=== PATIENT | female | born 1985 | race Caucasian/White ===

== ENCOUNTER 2023-12-16 15:37 | Emergency (ER) | payer OTHER, SELFPAY ==
--- NOTE | ~2023-12-16 | XR_ITS ---
XR shoulder LT min 2V 12/16/2023 16:01 INDICATION: Left shoulder pain with limited range of motion PROCEDURE: 4 views left shoulder COMPARISON: No prior studies for comparison. FINDINGS: Fracture, dislocation or subluxation is not identified. The soft tissues appear within norm al limits. No foreign bodies are identified. IMPRESSION: 1: NO ACUTE BONE OR JOINT ABNORMALITY IDENTIFIED. Reviewed, dictated and finalized at location A.
--- NOTE | 2023-12-16 15:38 | ED.UPPEXIN ---
HPI - Extremity Injury (Upper) General Chief Complaint: Extremity Injury, Upper Stated Complaint: Left Arm Pain Time Seen by Provider: 12/16/23 15:46 Source: patient, RN notes reviewed and old records reviewed Mode of arrival: ambulatory Limitations: no limitations History of Present Illness HPI narrative: 38-year-old female presents to the [facility] with complaints of left shoulder pain for 2 weeks. pain is reproducible with palpation. No recent trauma. Patient reports that she had injured her entire left side 3 years ago during an accident. Has decreased range of motion. No erythema, ecchymosis noted. No swelling noted. Tender to anterior and lateral aspects Related Data Home Medications Medication Instructions Recorded Confirmed dulaglutide 4.5 mg/0.5 mL mg subcut 12/16/23 subcutaneous pen injector ([facility]) omeprazole 40 mg capsule,delayed mg 12/16/23 release phentermine 37.5 mg tablet mg 12/16/23 Allergies Allergy/AdvReac Type Severity Reaction Status Date / Time hydromorphone Allergy Unknown Verified 09/09/16 11:57 iodine Allergy Unknown Verified 09/09/16 11:57 SEAFOOD Allergy Unknown Uncoded 09/09/16 11:57 Review of Systems Review of Systems: All systems reviewed & are unremarkable except as noted in HPI and below Constitutional: Constitutional: Reports no additional constitutional complaints Eyes: Eyes: Reports no additional eye complaints ENT: Reports system reviewed and no additional complaints, except as documented Cardiovascular: Cardiovascular: Reports no additional cardiovascular complaints, Denies chest pain and Denies dyspnea Respiratory: Respiratory: Reports no additional respiratory complaints, Denies chest congestion, Denies cough and Denies dyspnea Gastrointestinal: Gastrointestinal: Reports no additional gastrointestinal complaints, Denies abdominal pain, Denies nausea and Denies vomiting Musculoskeletal: Musculoskeletal: Reports as per HPI, Reports arthralgias, Denies joint swelling and Reports limited range of motion (Unable to raise above 90?) Integumentary/Breasts: Skin/Breast: Reports system reviewed and no additional complaints, except as docu Neurologic: Reports system reviewed and no additional complaints, except as documented Psychiatric: Psychiatric: Reports no additional psychiatric complaints Allergic/Immunologic: Allergic/Immunologic: Reports no additional allergic/immunologic complaints PMFSH Past Medical History Medical History (Updated 12/19/23 @ 10:11 by Leila Garza APRN) H/O gastroesophageal reflux (GERD) Comments At the time of my signature, I reviewed and agree with the nursing past medical, surgical, social, and family history. There is no relevant family history pertinent to the patient complaint. Exam Const: General: cooperative, healthy appearing, comfortable, no acute distress, well developed, alert and well nourished Nutritional Appearance: well nourished Orientation/consciousness: patient oriented x3 Limitations: no limitations HENMT: Head: normal to inspection Ears: hearing grossly normal bilaterally and external ears normal Face/Nose/Sinus: Normal external nose present, Normal nares present, Normal nasal mucous membranes and turbinates present, normal facial exam and face symmetric Face and sinus: normal facial exam and face symmetric Eyes: General: appearance normal, both eyes and all related structures Alignment and Position: alignment normal Periorbital: periorbital findings normal Pupils: Equal, round and reactive pupils present EOM: EOMs intact bilaterally Neck: Neck: normal visual inspection, full ROM, no lymphadenopathy and no meningeal signs Chest: Chest palpation & inspection: normal inspection of the chest Resp: Effort & Inspection: normal respiratory effort and able to speak in complete sentences Auscultation: clear to auscultation bilaterally, no crackles, no rales, no rhonchi and no wheezes Cardio: Rate: r
[2023-12-16 15:47] VITALS: BP 140/96; PULSE 83; RESP 18; TEMP 36.7; O2SAT 100
== END 2023-12-16 16:21 | disposition home or self-care (01) ==
PROVIDERS: Emergency Provider Nurse Practitioner; PCP Physician Assistant
DX: M25.512 Pain in left shoulder (principal); K21.9 Gastro-esophageal reflux disease without esophagitis
CPT/HCPCS: 73030; 99203; G0463

== ENCOUNTER 2025-06-28 15:26 | Emergency (ER) | payer OTHER, SELFPAY ==
--- NOTE | ~2025-06-28 | XR_ITS ---
EXAMINATION: XR chest 2V, 06/28/2025 15:53 CDT HISTORY: pain to R side chest with deep breath COMPARISON: No comparisons available. Technique: 2 views obtained. Findings: The lungs are clear, no effusion. No pneumothorax. Heart is normal size. Mediastinal and hilar contours are within normal limits. Bony thorax no acute abnormality. Impression: No acute cardiopulmonary abnormality. Reviewed, dictated and finalized at location P. Impression: No acute cardiopulmonary abnormality.
[2025-06-28 15:28] VITALS: BP 147/91; PULSE 106; RESP 20; TEMP 36.8; O2SAT 98
--- OUTSIDE RECORDS SUMMARY | 2025-06-28 15:28 | XMS_ITS | Clinical Summary ---
Author Organization [facility] Address [address] [place] [address] Care Team Providers Care Tire Adjuster Name Role Phone Unavailable Primary Care Provider Unavailabl e Source Comments [facility],non-owned Affiliates and Associated Physician Practices is amultiple site organization consisting of ambulatory clinics and hospital sitesin [place], [place], [place] and [place]. This disclosure is being madepursuant to the Care Everywhere program and may not contain all information available regarding this patient. Last updated 18.[facility] Allergies Active Allergy Reactions Criticality Noted Date Comments Hydromorphone Vision Changes High 05/23/2014 Povidone Iodine Swelling 05/23/2014 Medications * Be aware that medications may not be up to date on this document. Alwaysverify current medications with the patient. Insulin Pen Needle (PEN NEEDLES 11/18) 31G X 5 MM MISC Use 1 Units at bedtime. Use with levemir 100 Each 3 05/23/2014 Active insulin syringe-needle (BD ULTRAFINE II) 31G X 5/16 1 ML syringe For insulin administrati on. 100 Syringe 1 05/30/2014 Active glyBURIDE (DIABETA; MICRONASE) 1.25 MG tablet Take one tablet at bedtime with snack. 30 Tab 1 07/16/2014 Active Active Problems Problem Noted Date Diagnosed Date Supervision of other high-risk 014 Overview (07/13/2015): Dating by L = 9 wk US per ACOG PNL A+/I/-/-, HIV NR per ACOG 11.8/35.4/192 Abnormal GTT GDM (gestational diabetes mellitus) 05/16/2014 Overview (05/16/2014): Possible T2DM? GTT 94/233/216/76, no A1C in records H/O shoulder dystocia in keegan or , currently 05/16/2014 Overview (05/16/2014): Shoulder dystocia x 2 Hyperthyroidism 05/16/2014 Overview (05/28/2014): On PTU 100 mg Labs from 04/15/14 - TSH 0.376 (Low) and FT4 0.98 (wnl) Melanoma 05/16/2014 Overview (05/16/2014): Of Left Breast Family History Medical History Relation Name Comments Diabetes Father Diabetes Mother Hypertension Mother Relation Name Status Comments Father Mother Social History Tobacco Use Types Packs/Day Years Used Date Smoking Tobacco: Never Smokeless Tobacco: Never Alcohol Use Standard Drinks/Week Comments No 0 (1 standard drink = 0.6 oz pur e alcohol) Comments No Sex and Gender Information Value Date Recorded Sex Assigned at Not on file Legal Sex Female 11:53 AM CDT Gender Identity Not on file Sexual Orientation Not on file Last Filed Vital Signs Vital Sign Reading Time Taken Comments Blood Pressure 132/67 07/23/2014 8:51 AM HEAT TREATER HELPER Pulse 57 07/23/2014 8:51 AM HEAT TREATER HELPER Temperature - - Respiratory Rate 20 06/25/2014 9:35 AM CDT Oxygen Saturation - - Inhaled Oxygen Concentration - - Weight 83.8 kg (184 lb 12.8 oz) 07/23/2014 8:51 AM HEAT TREATER HELPER Height 157.5 cm (5' 2) 06/25/2014 9:35 AM CDT Body Mass Index 33.8 06/25/2014 9:35 AM CDT Plan of Treatment Health Maintenance Due Date Last Done Comments LIPID TESTING 1983 MAMMOGRAM 1983 HIV SCREENING 1998 HEPATITIS C SCREENING 03/12/2001 DTAP/TDAP/TD VACCINES (1 - Tdap) 2002 HEPATITIS B VACCINE (1 of 3 - 19+ 3-dose series) 2002 HPV VACCINE (1 - 3-dose SCDM series) 2010 DEPRESSION SCREENING 09/05/2024 COVID-19 VACCINE ( - 2023-2 5 season) 2025 INFLUENZA VACCINE (#1) 2025 ZOSTER VACCINE (1 of 2) 2033 HIB VACCINE Aged Out No longer eligi ble based on patient's age to complete this topic MENINGOCOCCAL (Group B) VACC INE SHARED DECISION-MAKING Aged Out No longer eligibl e based on patient's age to complete this topic MENINGOCOCCAL GROUPS A/C/Y/W VACCINE Aged Out No longer eligible b ased on patient's age to complete this topic PNEUMOCOCCAL VACCINE Aged Out No long er eligible based on patient's age to complete this topic Insurance [address] [address] MEDICAID - [place] MEDICAID - [employer]
--- OUTSIDE RECORDS SUMMARY | 2025-06-28 15:28 | XMS_ITS | Encounter Summary ---
Author Organization [facility] Address [address] [place] [address] Phone Care Team Providers Care Motor Vehicle Technician Name Role Phone John Kaiser DO Unavailable [phone] Dawn Bower GEOSPATIAL SPECIALIST, LOW PRESSURE KETTLE OPERATOR Unavailable [phone] Gloria Garvey GEOSPATIAL SPECIALIST, LOW PRESSURE KETTLE OPERATOR Unavailable Yan Gutierrez MD Unavailable Naima Carver MD Unavailable [phone] Marce Armenta PAC Primary Care Provider + Dirk Viramontes PAC Unavailable [phone] Reason for Visit * Reason Comments Medication Refill Encounter Details Date Type Department Care Team (Late st Contact Info) Description 01/19/2024 Refill [facility] - Family Medicine [facility] [address] [place] [address] Marce Armenta, PAC [address] [place] [address] Medication Refill Social History Tobacco Use Types Packs/Day Years Used Date Smoking Tobacco: Former Cigarettes 0 05/12/1996 - 03/04/2006 Smokeless Tobacco: Never Alcohol Use Standard Drinks/Week Comments Not Currently 0 (1 standard drink = 0.6 oz pur e alcohol) once or twice a year [facility] Utilities Answer Date Recorded In the past 12 months has th e electric, gas, oil, or water company threatened to shut off services in your home? No 11/03/2023 Social Connection and Isolation Panel Answer Date Recorded In a typical week, how many times do you talk on the phone with family, friends, or neighbors? More than three times a week 11/03/2023 How often do you get togethe r with friends or relatives? More than three times a week 11/03/2023 How often do you attend chur ch or orthodox services? Never 11/03/2023 Do you belong to any clubs o r organizations such as rastafari groups, unions, fraternal or athletic groups, or school groups? No 11/03/2023 How often do you attend meet ings of the clubs or organizations you belong to? Never 11/03/2023 Are you , , di vorced, , never , or living with a partner? Living with partner 11/03/2023 AUDIT-C Answer Date Recorded Q1: How often do you have a drink containing alc ohol? Never 11/03/2023 Average Number of Drinks Not on file 024 Frequency of Binge Drinking Not on file 10/07 Overall Financial Resource Strain (CARDIA) Answe r Date Recorded How hard is it for you to pa y for the very basics like food, housing, medical care, and heating? Not hard at all 11/03/2023 PHQ-2 Answer Date Recorded Total Score - Questions 1-9 1 10/07 [facility] - Occupational Stress Questionnaire Answer Date Recorded Do you feel stress - tense, restless, nervous, or anxious, or unable to sleep at night because your mind is troubled all the time - these days? Not at all 11/03/2023 Exercise Vital Sign Answer Date Recorde d On average, how many days pe r week do you engage in moderate to strenuous exercise (like a brisk walk)? 5 days 11/03/2023 On average, how many minutes do you engage in exercise at this level? 90 min 11/03/2023 Hunger Vital Sign Answer Date Recorded Within the past 12 months, y ou worried that your food would run out before you got the money to buy more. Never true 11/03/19 Within the past 12 months, t he food you bought just didn't last and you didn't have money to get more. Never true 11/03/2023 PRAPARE - Transportation Answer Date Re corded In the past 12 months, has l ack of transportation kept you from medical appointments or from getting medications? No 10/07 In the past 12 months, has l ack of transportation kept you from meetings, work, or from getting things needed for daily living? No 11/03/2023 Housing Stability Vital Sign Answer Jostin e Recorded In the last 12 months, was t here a time when you were not able to pay the mortgage or rent on time? No 11/03/2023 [address] of [address] Lived in the Last Year Not on f ile 11/03/2023 Unstable Housing in the Last Year Not on file 11/03/2023 Education Answer Date Recorded What is the highest level of school you have completed or the highest degree you have received? 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 Not on file Not on file Not on file documented as of this encounter Miscellaneous Notes * Telephone Encounter - Ginger Rodrigues RN - 01/19/2024 8:35 AM CDT On 01/06/24, sent to: Pharmacy [facility] [address] [place] [address] documented in this encounter Plan of Treatment Not on file documented as of this encounter Visit Diagnoses Diagnosis Type 2 diabetes mellitus without complication, without long-term current use of insulin documented in this encounter Additional Health Concerns Assessment Noted Time PHQ-9 Depression Total Score: 1 11/03/19 9:00 AM WOUND CARE CENTER CONSULTANT documented as of this encounter Care Teams Motor Vehicle Technician Relationship Specialty Start Date End Date Marce Armenta PAC [address] [place] [address] PCP - General Physician Mill Operator 04/22/20 John Kaiser DO Gastroenterology 03/15/16 Dawn Bower, GEOSPATIAL SPECIALIST, LOW PRESSURE KETTLE OPERATOR Nurse Practitioner Advanced Practice Nurse 03/15/16 Golria Garvey, GEOSPATIAL SPECIALIST, LOW PRESSURE KETTLE OPERATOR Nurse Practitioner Advanced Practice Nurse 03/15/16 Yan Gutierrez MD General Surgery 02/22/17 aNima Carver MD [address] [place] [address] Family Medicine 10/03/19 Dirk Viramontes PAC [address] [place] [address] Physician Mill Operator Physician Mill Operator 02/10/24 documented as of this encounter
--- OUTSIDE RECORDS SUMMARY | 2025-06-28 15:28 | XMS_ITS | Encounter Summary ---
Author Organization [facility] Address [address] [place] [address] Phone Care Team Providers Care Qa Automation Engineer Name Role Phone John Kaiser DO Unavailable [phone] Dawn Bower ARMAMENT INSTALLER, PETROLOGIST Unavailable Gloria Garvey ARMAMENT INSTALLER, PETROLOGIST Unavailable Yan Gutierrez MD Unavailable [phone] Naima Carver MD Unavailable [phone] Marce Armenta PAC Primary Care Provider + Dirk Viramontes PAC Unavailable [phone] Reason for Visit * Reason Comments Medication Refill Encounter Details Date Type Department Care Team (Late st Contact Info) Description 02/23/2021 Refill [facility] - Family Medicine [facility] [address] [place] [address] Marce Armenta, PAC [address] [place] [address] Medication Refill Social History Tobacco Use Types Packs/Day Years Used Date Smoking Tobacco: Former Cigarettes 0 05/12/1996 - 03/04/2006 Smokeless Tobacco: Never Alcohol Use Standard Drinks/Week Comments Yes 0 (1 standard drink = 0.6 oz pur e alcohol) once or twice a year PHQ-2 Answer Date Recorded Total Score - Questions 1-9 0 09/06 Education Answer Date Recorded What is the highest level of school you have completed or the highest degree you have received? 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 No / Unsure 02/06/2021 7:47 AM CDT documented as of this encounter Miscellaneous Notes * Telephone Encounter - Lola Hoang RN - 02/23/2021 4:23 PM CDT Per nursing clinical judgement, provider to review and approve the medication(s) order(s) if appropriate. Last OV 02/06/21, F/U None, Last Rx 04/22/20, Address Duplicate Therapy Lola RN Requested Prescriptions Pending Prescriptions Disp Refills albuterol (PROVENTIL, VENTOLIN) (2.5 MG/3ML) 0.083% Nebulizer Soln [Pharmacy Med Name: albuterol sulfate 2.5 mg/3 mL (0.083 %) solution for nebulization] 120 Vial 11 Sig: USE 1 VIAL IN NEBULIZER 4 TIMES DAILY Short Acting Inhaled Beta-Agonists Protocol Passed - 02/23/2021 10:34 AM Passed - Visit with relevant provider in past 12 months or upcoming 90 days Recent Visits Date Type Provider Dept 02/06/21 Office Visit Marce Armenta, PAC [facility] 09/29/20 Office Visit Marce Armenta, PAC [facility] 09/03/20 Telemedicine Marce Armenta, PAC [facility] 08/21/20 Telemedicine Marce Armenta, PAC [facility] 07/18/20 Office Visit Marce Armenta, PAC [facility] 07/02/20 Office Visit Marce Armenta, PAC [facility] 06/24/20 Office Visit Marce Armenta, PAC [facility] 05/16/20 Office Visit Marce Armenta, PAC [facility] 04/22/20 Office Visit Marce Armenta, PAC [facility] Showing recent visits within past 365 days and meeting all other requirements Future Appointments No visits were found meeting these conditions. Showing future appointments within next 90 days and meeting all other requirements documented in this encounter Plan of Treatment Not on file documented as of this encounter Visit Diagnoses Not on filedocumented in this encounter Additional Health Concerns Assessment Noted Time PHQ-9 Depression Total Score: 0 09/29/19 8:00 AM ELECTRICIAN YARD documented as of this encounter Care Teams Qa Automation Engineer Relationship Specialty Start Date End Date Marce ArmentaDEMOND [address] [place] [address] PCP - General Physician Recruiter Specialist 04/22/20 John Kaiser DO Gastroenterology 03/15/16 Dawn Bower APRN, PETROLOGIST Nurse Practitioner Advanced Practice Nurse 03/15/16 Gloria Garvey, ARMAMENT INSTALLER, PETROLOGIST Nurse Practitioner Advanced Practice Nurse 03/15/16 Yan Gutierrez MD General Surgery 02/22/17 Naima Carver MD [address] [place] [address] [place] [address] Family Medicine 10/03/19 Dirk Viramontes, PAC [address] [place] [address] Physician Recruiter Specialist Physician Recruiter Specialist 02/10/24 documented as of this encounter
--- OUTSIDE RECORDS SUMMARY | 2025-06-28 15:28 | XMS_ITS | Clinical Summary ---
Author Organization [facility] Address [address] [address] Phone Care Team Providers Care Contour Path Tape Mill Operator Name Role Phone John Kaiser DO Unavailable [phone] Dawn Bower ADDRESS CHANGE CLERK, SUPERVISOR HOT DIP PLATING Unavailable [phone] Gloria Garvey ADDRESS CHANGE CLERK, SUPERVISOR HOT DIP PLATING Unavailable Yan Gutierrez MD Unavailable Naima Carver MD Unavailable Marce Armenta PAC Primary Care Provider + Dirk Viramontes PAC Unavailable [phone] Allergies Active Allergy Reactions Criticality Noted Date Comments Hydromorphone Hcl Other (see Comments) 03/04/20 16 DIZZY/BLACK OUT Iodine Hives Medium 02/06/2021 Povidone-Iodine Swelling Medium 05/23/2014 Prochlorperazine Rash Medium 01/08/2021 Reaction: RASH Medications ferrous sulfate 325 (65 Fe) MG Tablet Take 1 Tablet by mouth daily. 90 Tablet 12/24/19 22 Active Blood Glucose Monitoring Suppl DeviceIndicatio ns:Type 2 diabetes mellitus without complication, without long-term current use of insulin Diagnosis: Diabetes type 2 Blood testing frequency: once a day 1 Each 09/14/19 23 Active Lancets MiscIndications :Type 2 diabetes mellitus without complication, without long-term current use of insulin Use as directed 100 Lancet 3 09/14/19 Active Glucose Blood (Glucose Meter Test) StripIndication s:Type 2 diabetes mellitus without complication, without long-term current use of insulin Test once daily 90 Strip 3 09/14/19 23 Active Cholecalciferol 25 mcg Capsule Take 1,000 Units by mouth. Active Blood Pressure Monitor DeviceIndicatio ns:Hypertension , unspecified type 1 Device by Does not apply route daily. 1 Each 06/30/20 23 Active cetirizine (ZyrTEC) 10 MG Tablet Take 1 Tablet by mouth daily. 90 Tablet 12/19/19 24 Active ondansetron (Zofran) 4 MG Tablet Take 1 Tablet by mouth every 8 hours as needed for Nausea - 1st line. 15 Tablet 03/29/20 24 Active hyoscyamine (ANASPAZ, LEVSIN) 0.125 MG Tablet Take 1 Tablet by mouth every 6 hours as needed for Cramping or Diarrhea. 60 Tablet 2 05/10/20 24 Active fluticasone (Flonase) 50 MCG/ACT SuspensionIndic ations:Allergic rhinitis due to other allergic trigger, unspecified seasonality 2 Sprays by Nasal route daily. 18.2 mL 3 12/11/19 25 Active albuterol (PROVENTIL, VENTOLIN) (2.5 MG/3ML) 0.083% Nebulizer Soln USE 1 VIAL IN NEBULIZER EVERY 4 TO 6 HOURS NEEDED for wheezing, cough or shortness of breath 300 mL 12/11/19 25 Active albuterol 108 (90 Base) MCG/ACT Aerosol SolutionIndicat ions:Moderate persistent asthma, unspecified whether complicated INHALE 2 PUFFS BY MOUTH EVERY 4 TO 6 HOURS NEEDED FOR WHEEZING AND FOR COUGH 18 g 1 12/11/19 25 Active Respiratory Therapy Supplies (Nebulizer/Tubi ng/Mouthpiece) KitIndications: Moderate persistent asthma, unspecified whether complicated 1 Device by Does not apply route every 4 hours as needed (cough, wheezing or shortness of breath). 1 Each 12/11/19 25 Active losartan (COZAAR) 25 MG TabletIndicatio ns:Hypertension , unspecified type Take 1 Tablet by mouth daily. 90 Tablet 3 12/11/19 25 Active Trulicity 4.5 MG/0.5ML Solution Auto-injector INJECT 1 SYRINGE SUBCUTANEOUSLY ONCE A WEEK 2 mL 5 02/15/20 25 Active fluticasone-marilu meterol (ADVAIR) 500-50 MCG/ACT AEROSOL POWDER, BREATH ACTIVATEDIndica tions:Moderate persistent asthma, unspecified whether complicated take 1 Puff by inhalation 2 times daily. 60 Each 2 02/19/20 25 Active Phentermine HCl 37.5 MG TabletIndicatio ns:BMI 33.0-33.9,adult Take 1 Tablet by mouth every morning (before breakfast). 30 Tablet 02/19/20 25 Active tiZANidine (ZANAFLEX) 2 MG TabletIndicatio ns:Left shoulder pain, unspecified chronicity Take 1 Tablet by mouth 3 times daily as needed for Muscle spasms. 60 Tablet 03/20/20 25 Active scopolamine (TRANSDERM-SCOP ) 1 MG/3DAYS PATCH 72 HR 1 Patch by Transdermal route every 72 hours. 1.5 mg patch delivers 1 mg over 3 days 3 Patch 05/01/20 25 Active ergocalciferol (VITAMIN D) 41560 UNIT Capsule Take 1 capsule by mouth once a week 12 Capsule 05/13/20 25 Active omeprazole (PriLOSEC) 40 MG CAPSULE DELAYED RELEASE Take 1 capsule by mouth once daily 90 Capsule 1 05/29/20 25 Active Hospital, Clinic, or Other Facility Administered Medication Ordered Dose Route Frequency Start Date End Date Status cyanocobalamin (VITAMIN B-12) injection 1,000 mcgIndications:B12 deficiency 1000 mcg IM EVERY 30 DAYS 08/24/2022 Active Active Problems Problem Noted Date Diagnosed Date Type 2 diabetes mellitus wit hout complication, without long-term current use of insulin 08/30/2024 Vitamin D deficiency 08/30/2024 B12 deficiency 08/30/2024 Encounters Date Type Department Care Team Description 05/27[facility]20[facility] [place] [address] Marce Armenta PAC Medication Refill 05/11/2025 [facility] [place] [address] Marce Armenta PAC Medication Refill 04/24/2025 Telephone [facility] at [facility] [address], [address] [place] [id number] Yvan Ochoa, NUT ROASTER HELPER No Show 04/15/2025 Telephone [facility] at [facility] [address] [place] [id number] Ritika Rivera, PT Missed visit 03/29/2025 9:15 AM CDT Physical Therapy [facility] at [facility] [address], [address] [place] [phone] Zayra Lloyd, ADDRESS CHANGE CLERK, SUPERVISOR HOT DIP PLATING Yvan Ochoa, NUT ROASTER HELPER Left shoulder pain, unspecified chronicity (Primary Dx) Discharge Disposition: Discharged to home or Selfcare 03/28/2025 Travel from Last 3 Months Immunizations Immunization Administration Dates Next Due TDAP Vaccine 03/29/2023 Td (Adult) 09/05/2007 VFC Td W/PRES 7+ YRS 09/05/2007 Family History Medical History Relation Name Comments Diabetes Father Tulio Neuropathy Father Tulio Diabetes Mother Jordyn Hypertension Mother Jordyn Relation Name Status Comments Father Tulio Mother Jordyn Alive Social History Tobacco Use Types Packs/Day Years Used Date Smoking Tobacco: Former Cigarettes 0 05/12/1996 - 03/04/2006 Smokeless Tobacco: Never Tobacco Cessation:Counseling Given: Not Answered Alcohol Use Standard Drinks/Week Comments Not Currently 0 (1 standard drink = 0.6 oz pur e alcohol) once or twice a year [facility] Utilities Answer Date Recorded In the past 12 months has [employer], oil, or water [employer] threatened to shut off services in your home? Patient declined 12/10/2024 Social Connection and Isolation Panel Answer Date Recorded In a typical week, how many times do you talk on the phone with family, friends, or neighbors? Patient declined 12/11/19 How often do you get togethe r with friends or relatives? Patient declined 12/10/2024 How often do you attend [facility] or mormon services? Patient declined 12/10/2024 Do you belong to any clubs o r organizations such as hindu groups, unions, fraternal or athletic groups, or school groups? No 12/10/2024 How often do you attend meet ings of the clubs or organizations you belong to? Patient declined 12/10/2024 Are you , , di vorced, , never , or living with a partner? Living with partner 12/10/2024 AUDIT-C Answer Date Recorded Q1: How often do you have a drink containing alcohol? Never 12/10/2024 Q2: How many drinks containi ng alcohol do you have on a typical day when you are drinking? Patient does not drink Q3: How often do you have si x or more drinks on one occasion? Never 12/10/2024 Overall Financial Resource Strain (CARDIA) Answe r Date Recorded How hard is it for you to pa y for the very basics like food, housing, medical care, and heating? Not hard at all 12/10/2024 PHQ-2 Answer Date Recorded Total Score - Questions 1-9 0 03/2025 [facility] - Occupational Stress Questionnaire Answer Date Recorded Do you feel stress - tense, restless, nervous, or anxious, or unable to sleep at night because your mind is troubled all the time - these days? Patient declined 12/10/2024 Exercise Vital Sign Answer Date Recorde d On average, how many days pe r week do you engage in moderate to strenuous exercise (like a brisk walk)? 5 days On average, how many minutes do you engage in exercise at this level? Patient declined 12/10/2024 Hunger Vital Sign Answer Date Recorded Within the past 12 months, y ou worried that your food would run out before you got the money to buy more. Patient declined Within the past 12 months, t he food you bought just didn't last and you didn't have money to get more. Patient declined 03/2025 PRAPARE - Transportation Answer Date Re corded In the past 12 months, has l ack of transportation kept you from medical appointments or from getting medications? Patient declined 12/10/2024 In the past 12 months, has l ack of transportation kept you from meetings, work, or from getting things needed for daily living? Patient declined 12/10/2024 Housing Stability Vital Sign Answer Jostin e Recorded In the last 12 months, was t here a time when you were not able to pay the mortgage or rent on time? No 01/24/2024 Number of Places Lived in the Last Year Not on f ile 01/24/2024 In the last 12 months, was t here a time when you did not have a steady place to sleep or slept in a long-term (including now)? No 01/24/2024 Housing Stability Vital Sign Answer Jostin e Recorded In the last 12 months, was t here a time when you were not able to pay the mortgage or rent on time? Patient declined 12/11/19 25 Number of Times Moved in the Last Year Not on fi le 12/10/2024 At any time in the [facility], were you homeless or living in a long-term (including now)? 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 Not on file Not on file Not on file Last Filed Vital Signs Vital Sign Reading Time Taken Comments Blood Pressure 124/80 03/20/2025 10:27 AM CDT Pulse 75 03/20/2025 10:27 AM CDT Temperature 36.4 C (97.6 F) 03/20/2025 10:27 AM CDT Respiratory Rate 18 03/20/2025 10:27 AM CDT Oxygen Saturation 100% 03/20/2025 10:27 AM CDT Inhaled Oxygen Concentration - - Weight 84.8 kg (187 lb) 03/20/2025 10:27 AM CDT Height 157.5 cm (5' 2) 03/20/2025 10:27 AM CDT Body Mass Index 34.2 03/20/2025 10:27 AM CDT Plan of Treatment Health Maintenance Due Date Last Done Comments Diabetes: Foot Exam 1983 Hepatitis B Immunization (1 of 3 - 19+ 3-dose series) 2002 Pneumococcal Immunization Combined (1 of 2 - PCV) 2002 Human Papillomavirus (HPV) Immunization (1 - 3-dose SCDM series) 2010 Diabetes: Eye Exam 08/18/2016 08/18/2015 Influenza Immunization (#1) 2025 SARS-COV-2 Immunization ( - season) 2025 Diabetes: Hemoglobin A1c 08/22/2025 025, 08/27/2024, 06/30/2023, Additional history exists Diabetes: Nephropathy Screening 02/20/2026 02/20/2025, 02/20/2025, 08/27/2024, Additional history exists Mammogram 03/25/2026 03/25/2025, 01/04, 06/12/2020 Td Immunization Every 10 Years (Adults With 1 Tdap) 03/29/2033 03/29/2023, 09/05/2007, 09/05/2007 Respiratory Syncytial Virus (RSV) Immunization (Adult) (1 - 1-dose 75+ series) 2058 DTaP/Tdap/Td Immunization Discontinued 2022, 09/05/2007, 09/05/2007 Discussion re Starting/Frequency of Mammograms Completed 03/25/2025, 01/31/2024, 06/12/2020 Hepatitis C Virus (HCV) Screening Discontinued Meningococcal Immunization (ACWY) Aged Out No longer eligible based on patient's age to complete this topic Rotavirus Immunization Aged Out No lo nger eligible based on patient's age to complete this topic Procedures Procedure Name Priority Date/Time Associated Diagnosis Comments OTTONIEL SCREENING BILATERAL DIGITAL W CAD W MARIAMA Routine 03/25/2025 4:08 PM CDT Screening mammogram for breast cancer UR MICROALBUMIN/CREATIN INE RATIO RANDOM Routine 02/20/2025 9:40 AM CDT Type 2 diabetes mellitus without complication, without long-term current use of insulin HEMOGLOBIN A1C W/ ESTIMATED GLUCOSE Routine 02/20/2025 9:40 AM CDT Type 2 diabetes mellitus without complication, without long-term current use of insulin HM DILATED EYE EXAM Routine 08/18/2015 from Last 3 Months or Most Recently Relevant to Health Maintenance Results * OTTONIEL SCREENING BILATERAL DIGITAL W CAD W MARIAMA (03/25/2025 4:08 PM CDT) Anatomical Region Laterality Modality breast Bilateral Mammography 03/25/2025 3:32 PM CDT Narrative 03/28/2025 8:19 AM CDT - OTTONIEL SCREENING BILATERAL DIGITAL W CAD W MARIAMA BILATERAL DIGITAL SCREENING MAMMOGRAM 3D/2D WITH CAD WITH EXAGGERATED CC MEDIOLATERAL OBLIQUE CRANIOCAUDAL: 03/25/2025 The study was acquired using digital technology and interpreted from soft copy. Current study was also evaluated with ICAD version 7.2. 2D digital mammographic views, as well as 3D digital tomosynthesis were performed in the CC and MLO projections. CLINICAL: Routine screening. Patient has no complaints. Personal history of melanoma left breast. No family history of breast cancer. COMPARISONS: Comparison is made to exams dated: 05/31/2011 [facility], 06/12/2020 [facility], and 01/31/2024 [facility]. BREAST TISSUE:The breasts are heterogeneously dense, which may obscure small masses. FINDINGS: No significant masses, calcifications, or other findings are seen in either breast. There has been no significant interval change. IMPRESSION: NEGATIVE There is no mammographic evidence of malignancy. A 1 year screening mammogram is recommended. A letter will be sent to the patient with these results. The patient will be entered into a reminder system with a target due date of 1 year for her next screening exam. Electronically signed by: Miquel adan/asiya:03/26/2025 22:26:13 Pottery Kiln Builder(s): RT Ari(R)(M), [facility] letter sent: Normal Exam Reading location: [facility] Mammogram BI-RADS: Category 1: Negative Procedure Note Miquel Carlos MD - 03/28/2025 - OTTONIEL SCREENING BILATERAL DIGITAL W CAD W MARIAMA BILATERAL DIGITAL SCREENING MAMMOGRAM 3D/2D WITH CAD WITH EXAGGERATED CC MEDIOLATERAL OBLIQUE CRANIOCAUDAL: 03/25/2025 The study was acquired using digital technology and interpreted from soft copy. Current study was also evaluated with ICAD version 7.2. 2D digital mammographic views, as well as 3D digital tomosynthesis were performed in the CC and MLO projections. CLINICAL: Routine screening. Patient has no complaints. Personal history of melanoma left breast. No family history of breast cancer. COMPARISONS: Comparison is made to exams dated: 05/31/2011 [facility], 06/12/2020 [facility], and 01/31/2024 [facility]. BREAST TISSUE:The breasts are heterogeneously dense, which may obscure small masses. FINDINGS: No significant masses, calcifications, or other findings are seen in either breast. There has been no significant interval change. IMPRESSION: NEGATIVE There is no mammographic evidence of malignancy. A 1 year screening mammogram is recommended. A letter will be sent to the patient with these results. The patient will be entered into a reminder system with a target due date of 1 year for her next screening exam. Electronically signed by: Miquel adan/asiya:03/26/2025 22:26:13 Pottery Kiln Builder(s): RT Ari(R)(M), [facility] letter sent: Normal Exam Reading location: [facility] Mammogram BI-RADS: Category 1: Negative us Marce Armenta PAC IMG MAMMO ORDERABLES Fin al Result * HEMOGLOBIN A1C W/ ESTIMATED GLUCOSE (02/20/2025 9:40 AM CDT) HGB-A1C 5.7 4.0 - 6.0 % 02/20/2025 11:02 AM CDT [facility] Est Average Glucose 116.9 mg/dL 02/20/2025 11:02 AM CDT [facility] Blood Venipuncture / Unknown 02/20/2025 9:40 AM CDT 02/20/2025 10:34 AM CDT Narrative [facility] - 02/20/2025 11:02 AM CDT HEMOGLOBIN A1C: DIABETIC PATIENTS: WELL-CONTROLLED: 6.2 - 7.0 INTERMEDIATE WELL-CONTROLLED: 7.0 - 9.0 POORLY-CONTROLLED: >9.0 Specimens containing greater than 5% of Hemoglobin F may result in lower than expected % HbA1C results. us Marce Armenta PAC CHEMISTRY ORDERABLES Fin al Result Performing Organization Address City/[facility]/ZIP Co de Phone Number [facility] [address] [place] [address] * UR MICROALBUMIN/CREATININE RATIO RANDOM (02/20/2025 9:40 AM CDT) RAN UR MICROALBUMIN 3.14 mg/dL 02/20/2025 10:53 AM CDT [facility] Comment:No reference range h as been established. Consider Clinical Correlation. CREATININE URINE 199.8 mg/dL 02/21/20 25 10:53 AM CDT [facility] Comment:No reference range h as been established. Consider Clinical Correlation. ALB/CREAT RATIO 16 0 - 30 mg/g CRE 02/20/2025 10:53 AM CDT [facility] Urine Non-Phlebotomy Collection / Unknown 02/20/2025 9:40 AM CDT 02/20/2025 10:32 AM CDT us Marce Armenta PAC URINE ORDERABLES Final R esult Performing Organization Address [facility] Co de Phone Number [facility] [address] [place] [address] * DILATED EYE EXAM (08/18/2015) us Not On File Provider PROCEDURE/MINOR SURGICAL OR DERABLES Final Result from Last 3 Months or Most Recently Relevant to Health Maintenance Insurance MEDICAID [employer] Care Teams Contour Path Tape Mill Operator Relationship Specialty Start Date End Date Marce Armenta PAC [address] [place] [address] PCP - General Physician Dye House Vat Worker 04/22/20 John Kaiser DO Gastroenterology 03/15/16 Dawn Bower, ADDRESS CHANGE CLERK, SUPERVISOR HOT DIP PLATING Nurse Practitioner Advanced Practice Nurse 03/15/16 Gloria Garvey, ADDRESS CHANGE CLERK, SUPERVISOR HOT DIP PLATING Nurse Practitioner Advanced Practice Nurse 03/15/16 Yan Gutierrez MD General Surgery 02/22/17 Naima Carver MD [address] [place] [address] [place] [address] Family Medicine 10/03/19 Dirk Viramontes PAC [address] [place] [address] Physician Dye House Vat Worker Physician Dye House Vat Worker 02/10/24
--- OUTSIDE RECORDS SUMMARY | 2025-06-28 15:28 | XMS_ITS | Clinical Summary ---
Author Organization [facility] Address [address] [place] [address] Care Team Providers Care Button Puncher Name Role Phone Marce Armenta Primary Care Provider [phone] Michelle Dixon DO Unavailable [phone] Allergies Active Allergy Reactions Criticality Noted Date Comments Hydromorphone Hives,Other (See comments),Vision changes,Dizziness,Nausea & Vomiting High 05/23/2014 DIZZY/BLACK OUT Medications albuterol 2.5 mg /3 mL (0.083 %) nebulizer solution albuterol sulfate 2.5 mg/3 mL (0.083 %) solution for nebulization USE 1 VIAL IN NEBULIZER EVERY 4 TO 6 HOURS NEEDED 0 Active albuterol HFA (PROVENTIL HFA,VENTOLIN HFA,PROAIR HFA) 90 mcg/actuation inhaler ProAir HFA 90 mcg/actuation aerosol inhaler INHALE 1 PUFF BY MOUTH EVERY 4 TO 6 HOURS NEEDED 1 Active cetirizine (ZyrTEC) 10 mg tablet cetirizine 10 mg tablet TAKE 1 TABLET BY MOUTH ONCE DAILY NEEDED Active fluticasone propionate (FLONASE) 50 mcg/actuation nasal spray Administer 2 sprays into each nostril daily Active phentermine (ADIPEX-P) 37.5 mg tablet Take 1 tablet (37.5 mg total) by mouth daily before breakfast 1 Active propranolol LA (INDERAL LA) 80 mg 24 hr capsule Take 1 capsule (80 mg total) by mouth daily For facial flushing 1 Active omeprazole (PriLOSEC) 40 mg capsule Take 1 capsule (40 mg total) by mouth daily 1 Active dulaglutide (TRULICITY) 4.5 mg/0.5 mL pen injector Inject 0.5 mL (4.5 mg total) under the skin once a week On Fridays 3 Active acetaminophen (TYLENOL) 325 mg tablet Take 2 tablets (650 mg total) by mouth every 6 (six) hours as needed for pain Active metoclopramide (REGLAN) 10 mg tablet Take 1 tablet (10 mg total) by mouth 3 (three) times a day for 5 days 15 tablet 4 Active Active Problems Problem Noted Date Diagnosed Date Viral gastroenteritis 03/28/2024 Hypoferremia 01/16/2024 Cyst of left ovary 12/31/2023 Rectal bleeding 12/30/2023 Abdominal pain 12/30/2023 Elevated systolic blood pres sure reading without diagnosis of hypertension 12/30/2023 Menorrhagia with irregular cycle 10/13/2021 Overview (10/13/2021): Added automatically from request for surgery [id number] Carpal tunnel syndrome, bilateral 02/19/2021 Overview (02/19/2021): Added automatically from request for surgery [id number] Trigger finger, right ring finger 02/13/2021 Trigger little finger of right hand 02/13/2021 Cubital tunnel syndrome on right 02/13/2021 Surgical follow-up care 01/08/2021 Multiple joint pain 01/08/2021 Obesity 01/08/2021 Painless rectal bleeding 01/08/2021 Primary fibromyalgia syndrome 01/08/2021 Lung nodule 12/24/2019 History of Helicobacter pylori infection 020 Persistent cough 12/24/2019 Helicobacter pylori gastrointestinal tract infec tion 09/20/2019 Flushing 01/02/2019 Gastroesophageal reflux disease without esophagi tis 01/02/2019 Spina bifida 01/02/2019 Chronic low back pain 10/18/2018 History of gestational diabetes mellitus 019 Overview (01/08/2021): Shoulder dystocia x 2 History of malignant melanoma 10/18/2018 Postcholecystectomy syndrome 10/11/2018 Lesion of lip 07/26/2014 GDM (gestational diabetes mellitus) 05/16/2014 Overview (01/08/2021): Possible T2DM? GTT 94/233/216/76, no A1C in records Hyperthyroidism 05/16/2014 Overview (01/08/2021): On PTU 100 mg Labs from 04/15/14 - TSH 0.376 (Low) and FT4 0.98 (wnl) Melanoma 05/16/2014 Overview (01/08/2021): Of Left Breast Supervision of other high ri sk pregnancies, unspecified trimester 05/16/2014 Overview (01/08/2021): Dating by L = 9 wk US per ACOG PNL A+/I/-/-, HIV NR per ACOG 11.8/35.4/192 Abnormal GTT Immunizations Immunization Administration Dates Next Due Td, Not Adsorbed 09/05/2007 Tdap 03/29/2023 Surgical History Surgery Date Site/Laterality Comments [place] CHOLECYSTECTOMY Cholecystectomy - (Added by TW Conv) ROTATOR CUFF REPAIR Rotator Cuff Repair - (Added by TW Conv) SECTION TUBAL LIGATION 07/06/2014 - 08/04/2014 TRIGGER FINGER RELEASE SKIN CANCER EXCISION breast CARPAL TUNNEL RELEASE ABLATION uterine LIPOMA RESECTION x 2 surgeries GANGLION CYST EXCISION HYSTERECTOMY Medical History Medical History Date Comments Personal history of malignan t melanoma of skin History of malignant melanom a - (Added by TW Conv) Asthma GERD (gastroesophageal reflux disease) Cancer (HCC) skin Seasonal allergies Asthma due to seasonal allergies Cough Lung disease Headache Anemia TMJ dysfunction Family History Medical History Relation Name Comments Diabetes Father Family history of diabetes mellitus - (Added by TW Conv) Diabetes Mother Family history of diabetes mellitus - (Added by TW Conv) Arthritis Other Gout Other Hypertension Other Kidney disease Other Lung disease Other Seizures Other Relation Name Status Comments Father Mother Other Social History Tobacco Use Types Packs/Day Years Used Date Smoking Tobacco: Former Cigarettes 0.5 5 1 998 - 2002 Smokeless Tobacco: Never Tobacco Cessation:Counseling Given: Not Answered Alcohol Use Standard Drinks/Week Comments Yes 0 (1 standard drink = 0.6 oz pur e alcohol) AUDIT-C Answer Date Recorded Q1: How often do you have a drink containing alcohol? Never 12/30/2023 Q2: How many drinks containi ng alcohol do you have on a typical day when you are drinking? Patient does not drink Q3: How often do you have si x or more drinks on one occasion? Never 12/30/2023 Personal Safety Answer Date Recorded Have you ever been in or are you currently in a harmful physical or emotional relationship or is someone making you feel afraid or unsafe? 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 Not on file Not on file Obstetrics History Para Term AB IAB SAB Ectopic Multiple Livin g Live Births 6 5 5 1 1 5 5 Date Outcome GA Total Labor Labor/2nd/3rd Weight Sex Type Anes PTL Anna A1 A5 Name Clin Term 2.807 kg (6 lb 3 oz) F Vag-S pont Livin g Term 4.281 kg (9 lb 7 oz) F CS-Un spec Livin g SAB 2001 Term 38w 0d 3.09 kg (6 lb 13 oz) N Mariel kennedy Complications:None 2003 Term 40w 0d 4.167 kg (9 lb 3 oz) N Mariel Jamil on Complications:Shoulder Dysto nery Comments:permanent bra chial plexus injury with physical therapy x 8 years 09/2013 Term 39w 0d 4.139 kg (9 lb 2 oz) M Vag-V acuum Saud Truong Complications:Shoulder Dysto nery Comments:abnormal 1-ho ur GCT, normal 3-hour GTT Last Filed Vital Signs Vital Sign Reading Time Taken Comments Blood Pressure 133/93 03/28/2024 11:15 AM CDT Pulse 101 03/28/2024 11:15 AM CDT Temperature 36.7 C (98.1 F) 03/28/2024 11:22 AM CDT Respiratory Rate 13 03/28/2024 11:15 AM CDT Oxygen Saturation 97% 03/28/2024 11:15 AM CDT Inhaled Oxygen Concentration - - Weight 74.4 kg (164 lb) 03/28/2024 8:26 AM CDT Height 157.5 cm (5' 2) 01/16/2024 1:43 PM CDT Body Mass Index 30 01/16/2024 1:43 PM CDT Plan of Treatment Health Maintenance Due Date Last Done Comments Albumin Creatinine Ratio, Urine 1983 Depression Screening 1983 Hemoglobin A1C 1983 Hepatitis C Screening 1983 Dilated Eye Exam 1983 Foot Exam 1983 Varicella Vaccines (1 of 2 - 13+ 2-dose series) 1996 Hepatitis B Screening 2001 Regular Well Visit/Exam 18-64 2001 Pneumococcal vaccine <65 (1 of 2 - PCV) 2002 HPV Vaccines (1 - 3-dose SCD M series) 2010 eGFR 03/28/2025 03/28/2024, 12/05, 12/30/2023, Additional history exists Influenza Vaccine (#1) 2025 Lipid Panel 02/20/2026 02/20/2025, 06/30/2023 Breast Cancer Screening-Mammogram 03/25/2026 03/25/2025, 03/25/2025, 01/31/2024, Additional history exists DTaP/Tdap/Td Vaccine (2 - Td or Tdap) 03/29/2033 03/29/2023, 09/05/2007 Procedures Procedure Name Priority Date/Time Associated Diagnosis Comments EGFR STAT 03/28/2024 8:41 AM CDT SCREENING MAMMOGRAM BILATERAL W MARIAMA Schedule Routine, Read Routine (OP Routine) 01/31/2024 3:23 PM CDT Encounter for mammogram to establish baseline mammogram from Last 3 Months or Most Recently Relevant to Health Maintenance Results * eGFR (03/28/2024 8:41 AM CDT) eGFR >90 >=60 mL/min/1. 73 m2 Comment: Interpretive Data Reference Interval Normal >/= 90 mL/min/1.73m2 Mildly decreased* 60 - 89 mL/min/1.73m2 Mildly to moderately decreased 45 - 59 mL/min/1.73m2 Moderately to severely decreased 30 - 44 mL/min/1.73m2 Severely decreased 15 - 29 mL/min/1.73m2 Kidney Failure < 15 mL/min/1.73m2 *Relative to young adult level Estimated glomerular filtration rate is determined by the 2020 CKD-EPI equation recommended by the National Kidney Foundation (A Unifying Approach to GFR Estimation: Recommendations of the NKF-ASK Task Force on Reassessing the Inclusion of Race in Diagnosing Kidney Disease, JASN 2020). The CKD-EPI equation should not be used for patients with unstable renal function and has not been validated in children and those over 70. Current interpretive data was last reviewed 2021. Blood 03/28/2024 8:41 AM CDT 03/28/2024 8:58 AM CDT us Tip Urrutia MD LAB BLOOD ORDERABLES Final Resul t [facility]) [address] Department [place] [address] * Screening Mammogram Bilateral W Mariama (01/31/2024 3:23 PM CDT) Anatomical Region Laterality Modality Breast Bilateral Mammography 02/06/2024 10:0 8 AM CDT Impressions 02/06/2024 10:08 AM CDT There is no mammographic evidence of malignancy. A 1 year screening mammogram is recommended. BI-RADS: 1 - Negative. The patient has been or will be contacted. The patient will be entered into a reminder system with a target due date of 1 year for her next mammogram. Electronically signed by: Angelica Fajardo M.D. Narrative 02/06/2024 10:08 AM CDT EXAMINATION: SCREENING MAMMOGRAM BILATERAL W MARIAMA ORDERING HEALTHCARE PROVIDER: MICHELLE DIXON HISTORY: Routine screening mammography. COMPARISON: 06/12/2020, 05/31/2011 TECHNIQUE: CC and MLO views of the bilateral breasts were obtained with digital technique using breast tomosynthesis with C view. Computer aided detection was utilized. FINDINGS: DENSITY: The tissue of the bilateral breasts is heterogeneously dense, which may obscure small masses. BREASTS: There are no suspicious masses, suspicious calcifications, or other suspicious findings in either breast. There has been no suspicious interval change. Michelle Dixon DO IMG MAMMO PROCEDURES Fi nal Result from Last 3 Months or Most Recently Relevant to Health Maintenance Insurance [facility] [employer] [facility] [place] Advance Directives For more information, please contact: [phone] * Full Code (Latest Code Status on File) Date Activated Date Inactivated Comments 03/28/2024 11:04 AM 03/28/2024 4:46 PM * Full Code Date Activated Date Inactivated Comments 12/31/2023 9:56 AM 12/31/2023 8:34 PM * Full Code Date Activated Date Inactivated Comments 12/31/2023 9:56 AM 12/31/2023 9:56 AM * Full Code Date Activated Date Inactivated Comments 12/30/2023 7:02 PM 12/31/2023 9:56 AM Healthcare Agents on File Name Relationship Healthcare Agent Relationshi p Communication Kishor Garza Significant Other First Alternate Health Care Agent Care Teams Button Puncher Relationship Specialty Start Date End Date Marce Armenta PA [address] [address] PCP - General Business And Marketing Teacher 01/01/21 Michelle Dixon DO [address] [place] [address] Consulting Physician Obstetrics and Gynecology 10/23/21
--- OUTSIDE RECORDS SUMMARY | 2025-06-28 15:28 | XMS_ITS | Encounter Summary ---
Author Organization [facility] Address [address] [place] [address] Phone Care Team Providers Care Photo Machine Operator Name Role Phone John Kaiser DO Unavailable [phone] Danw Bower ENVIRONMENTAL SERVICES WORKER, FLAT SURFACER Unavailable [phone] Gloria Garvey ENVIRONMENTAL SERVICES WORKER, FLAT SURFACER Unavailable Yan Gutierrez MD Unavailable Naima Carver MD Unavailable Marce Armenta PAC Primary Care Provider + Dirk Viramontes PAC Unavailable [phone] Reason for Visit * Reason Comments Medication Refill Encounter Details Date Type Department Care Team (Late st Contact Info) Description 11/19/2023 Refill [facility] - Family Medicine [facility] [address] [place] [address] Marce Armenta, PAC [address] [place] [address] Medication Refill Social History Tobacco Use Types Packs/Day Years Used Date Smoking Tobacco: Former Cigarettes 0 05/12/1996 - 03/04/2006 Smokeless Tobacco: Never Alcohol Use Standard Drinks/Week Comments Not Currently 0 (1 standard drink = 0.6 oz pur e alcohol) once or twice a year [facility] Utilities Answer Date Recorded In the [...] often do you attend chur ch or mandaeism services? Never 11/03/2023 Do you belong to any clubs o r organizations such as gnosticism groups, unions, fraternal or athletic groups, or [...] Total Score - Questions 1-9 1 10/07 [facility] - Occupational [...] money to buy more. 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 Requested Prescriptions Pending Prescriptions Disp Refills Trulicity 4.5 MG/0.5ML Solution Pen-injector [Pharmacy Med Name: Trulicity 4.5 MG/0.5ML Subcutaneous Solution Pen-injector] 4 mL 0 Sig: INJECT 1 PEN (4.5MG) SUBCUTANEOUSLY ONCE WEEKLY GLP-1 Agonists Protocol Passed - 11/19/2023 10:41 AM Passed - Lipid panel result on file in past 12 months LDL Date Value Ref Range Status 06/30/2023 73 <130 mg/dL Final HDL CHOLESTEROL Date Value Ref Range Status 06/30/2023 34 (L) >40 mg/dL Final CHOLESTEROL Date Value Ref Range Status 06/30/2023 151 <200 mg/dL Final TRIGLYCERIDES Date Value Ref Range Status 06/30/2023 221 (H) <150 mg/dL Final VLDL Date Value Ref Range Status 06/30/2023 44 10 - 50 mg/dL Final CHOL/HDL RATIO Date Value Ref Range Status 06/30/2023 4.4 0.0 - 4.4 Final NON-HDL CHOLESTEROL Date Value Ref Range Status 06/30/2023 117 <130 mg/dL Final Passed - Visit with relevant provider in past 6 months or upcoming 90 days Recent Visits Date Type Provider Dept 11/03/23 Office Visit Marce Armenta PAC [facility] 08/02/23 Office Visit Marce Armenta PAC [facility] 06/30/23 Office Visit Marce Armenta PAC [facility] Showing recent visits within past 182 days and meeting all other requirements Future Appointments No visits were found meeting these conditions. Showing future appointments within next 90 days and meeting all other requirements Passed - HgA1C result on record in past 6 months HGB-A1C Date Value Ref Range Status 06/30/2023 5.1 4.0 - 6.0 % Final Passed - GFR on record in past 6 months GFR, EST. NONAFRICAN Date Value Ref Range Status 06/30/2023 >60 >=60 Final * Telephone Encounter - Ginger Rodrigues RN - 11/19/2023 10:43 AM CDT Images from the original note were not included. Dulaglutide Dispensed Days Supply Quantity Provider Pharmacy TRULICITY 4.5MG/0.5ML INJ 10/28/2023 28 4 mL Marce Armenta PAC [id number] ... documented in this encounter Plan of Treatment Not on file documented as of this encounter Visit Diagnoses Diagnosis Type 2 diabetes mellitus without complication, without long-term current use of insulin documented in this encounter Additional Health Concerns Assessment Noted Time PHQ-9 Depression Total Score: 1 11/03/19 24 9:00 AM HANGAR ATTENDANT documented as of this encounter Care Teams Photo Machine Operator Relationship Specialty Start Date End Date Marce Armenta PAC [address] [place] [address] PCP - General Physician Inventory Accountant 04/22/20 John Kaiser DO Gastroenterology 03/15/16 Dawn Bower, ENVIRONMENTAL SERVICES WORKER, FLAT SURFACER Nurse Practitioner Advanced Practice Nurse 03/15/16 Gloria Garvey, ENVIRONMENTAL SERVICES WORKER, FLAT SURFACER Nurse Practitioner Advanced Practice Nurse 03/15/16 Yan Gutierrez MD General Surgery 02/22/17 Naima Carver MD [address] [place] [address] [place] [address] Family Medicine 10/03/19 Dirk Viramontes PAC [address] [place] [address] Physician Inventory Accountant Physician Inventory Accountant 02/10/24 documented as of this encounter
--- OUTSIDE RECORDS SUMMARY | 2025-06-28 15:28 | XMS_ITS | Data Portability ---
Author Organization [facility] Address [address] [place] [address] Assessment Encounter Date Assessment Date Assessment LastModified by Organization Details LastModified Time 01/02/2019 01/02/2019 Pending Rheum, GI, Derm. RTC 6mo Not available 01/02/2019 17:51:21 09/18/2019 09/18/2019 H pylori, then abx, then CT chest. Recent cousin due to P.E. RTC 3mo. Not available 09/18/2019 23:53:29 12/18/2019 12/18/2019 Telemed RTC 6mo Not available 12/24/2019 13:09:06 01/15/2020 01/15/2020 Hi - tracking patient Telemed Get CT chest, cancel ours. Not available 01/15/2020 15:31:32 Plan of Treatment Reminders Order Date Submit Date Provider Last Modified By Organization Details Last Modified Time Details Appointments None recorded. Lab SARS CoV 2 RNA (COVID-19 ), QL, trade manager-PCR, respirato ry specimen - congestio n, cough, fatigue, fever, exposed to pos COVID person. [facility] 1230 2019 020 [facility] (Lab), [address] [place], [address], 0 11:59:11 H pylori urea breath test, co2 infrared 2019 020 [facility], [address] [facility], [address], [place], [address], 0 17:08:07 Referral ENT referral 2019 020 era Cobb Tonya , [address] [facility] , [address], [place], [address], 0 11:41:11 gastroent erologist referral 2019 020 aaustill John Kaiser DO, [address], [address], [place], [address], 0 16:42:23 gastroent erologist referral 2018 019 [email or web address] Not available 9 11:43:50 Procedures None recorded. Surgeries None recorded. Imaging CT, chest, w/o contrast 2019 020 ATHENAFAX [facility] ([facility]) Scheduling, [address] [place], [address], 0 08:45:38 MRI, lumbar spine, w/o contrast 2018 019 dsehrrn [facility] ([facility]) Scheduling, [address] [place], [address], 9 16:01:32 Medication Orders cetirizin e 10 mg tablet 2019 020 INTERFACE [facility], [address] [place], [address], 0 15:10:35 albuterol sulfate HFA 90 mcg/actua tion aerosol inhaler 2019 020 INTERFACE [facility], [address] [place], [address], 0 15:10:[address] 10 mg tablet 2019 020 INTERFACE [facility], [address] [place], [address], 0 15:10:30 Flonase Allergy Relief 50 mcg/actua tion nasal spray,gi pension 2019 020 [facility], [address] [place], [address], 0 15:10:31 benzonata te 100 mg capsule 2019 020 [facility], [address] [place] [address], [address], 0 15:10:24 albuterol sulfate HFA 90 mcg/actua tion aerosol inhaler 2019 [facility], [address] [place] [address], [address], 0 16:45:58 cetirizin e 10 mg tablet 2019 [facility], [address] [place] [address], [address], 0 16:46:07 omeprazol e 40 mg capsule,d elayed release 2019 020 [facility], [address] [place] [address], [address], 0 16:46:02 azithromy rahel 250 mg tablet 2019 020 [facility], [address] [place] [address], [address], 0 16:22:14 diclofena c sodium 50 mg tablet,de layed release 2019 [facility], [address] [place] [address], [address], 0 09:49:39 omeprazol e 40 mg capsule,d elayed release 2019 [facility], [address] [place], [address], 0 09:44:45 cyclobenz aprine 5 mg tablet 2018 019 [email or web address] [facility], [address] [place], [address], 0 11:01:00 propranol ol 10 mg tablet 2018 019 INTERFACE [facility], [address] [place], [address], 9 17:31:23 omeprazol e 20 mg capsule,d elayed release 2018 019 [facility], [address] [place], [address], 0 23:53:17 Patient TargetsNo targets recorded. Patient Instructions Encounter Date Encounter Id Patient Instructions Last Modified By Organization Details Last Modified Time 01/02/2019 [id number] heavy menstrual periods: care instructions [place] [id number] Not available 01/02/2019 17:51:04 09/01/2020 [id number] Reviewed the following recommendations: -Stay home and separate from others as much as possible. -Monitor your symptoms and seek medical attention for trouble breathing, persistent chest pain, confusion, or bluish lips or face. -Wear a mask if you must be around other people. -Wash your hands often for 20 seconds with soap and water and clean high-touch surfaces daily -You may discontinue home isolation if your symptoms are improving and it has been 10 days since symptoms started. [email or web address] Not available 09/01/2020 11:29:58 Reason for Referral Search Strategist Referral for Gastroesophageal reflux disease without esophagitis Referring Physician: Naima Crane, [facility], Encounter Date: 01/02/2019 Search Strategist Referral for Gastroesophageal reflux disease without esophagitis Referring Physician: Naima Crane [facility], Encounter Date: 09/18/2019 ENT Referral for Persistent cough Referring Physician: Naima Crane, Family Medicine, Encounter Date: 01/15/2020 Results Created Date Observation Date Name Description Value Unit Range Abnormal Flag Note LastModifiedBy Organization Detail LastModifiedTime 09/18/19 20 09/19/2019 H pylor i urea breat h test, co2 infra red H pylori breath test POSITI VE negati ve abnormal Not Available [facility] ([facility]) [address] [facility], [place], [address], 09/19/2019 17:08:07 01/05/20 19 12/19/2018 XR, lumba r spine No observ ation record ed. [email or web address] Not Available 2018 14:21:25 01/05/20 19 12/19/2018 XR, chest No observ ation record ed. Not Available 2019 16:34:04 01/18/20 20 01/09/2020 CT, angio gram, chest , w/ contr ast No observ ation record ed. Not Available 2019 17:30:38 Result Notes None recorded. Problems Name Problem SNOMED Code Status Onset Date Resolution Date Notes Provider Name and Address Organization Details Recorded Time Gestatio nal diabetes mellitus 80762662 Completed 01/15/2020 Naima Crane null, [place] 0 15:31:49 Pain of multiple joints 04892889 Active Kwesi Evans MD Attn: Tru g,[address] [facility], [place], [address], [place] [facility] 6 09:04:38 Primary fibromya lgia syndrome 58636281 Active Kwesi Evans MD Attn: Accountin g,[address] [facility], [place], [address], [place] [facility] 5 12:43:00 Surgical follow-u p 775645932 Active C-sectio n tubal follow up Estee Vázquez MA null, [place] [facility] 4 12:04:02 Painless rectal bleeding 777331293 Active Kwesi Evans MD Attn: Accountin g,[address] [facility], [place], [address], [place] [facility] 6 09:04:38 Obesity 956442226 Active Kwesi Evans MD Attn: Tru kennedy,[address] [facility], [place], [address], [place] [facility] 6 12:26:52 Serum iron below referenc e range 307401064 Completed 01/02/2019 N[place] ferrell, [place] [facility] 9 17:50:00 History of iron deficien cy 231223355 Completed 201801/02/2019 Naim[place] Crane [place] [facility] 9 17:50:16 Postchol ecystect tiera syndrome 00101551 Active 2018 N[place]rell[place] [facility] 9 12:50:22 Menorrha joel 673024656 Completed 201801/02/2019 [place]aim[place] Cr[place] [facility] 9 17:50:24 History of Malignan t melanoma 599388443 Active 2018 N[place] [facility] 9 15:04:26 Chronic low back pain 436102056 Active 2018 [place] [facility] 9 15:04:27 Past pregnanc y history of gestatio nal diabetes mellitus 852838749 Active 2018 [place] [facility] 9 15:07:00 Gastroes ophageal reflux disease without esophagi tis 370459544 Active 2018 Naim[place] Cr[place] [facility] 9 17:46:50 Spina bifida 07083486 Active 2018 [place]aim[place] [facility] 9 17:48:28 [place] 672035740 Active 2018 Naim[place] Cr[place] [facility] 9 17:48:56 Helicoba cter pylori gastroin testinal tract infectio n 140179665 Completed 201912/24/2019 Naima ferrell [facility] 0 13:06:55 Solitary nodule of lung 164007210 Active [address] chest 01/09/20 - no acute pulmonar y abn. No pulmonar y nodules/ masses. Naima ferrell [facility] 0 17:31:25 Persiste nt cough 744248756 Active 2019 Naima ferrell [facility] 0 13:06:33 History of Helicoba cter pylori infectio n 63784976886 196384 Active 2019 treated and f/u biopsy was negative Naima ferrell [facility] 0 13:07:08 Problem Notes None recorded. Procedures Surgical History Date Name Laterality Status Provider Name and Address Organization Details Recorded Time 03/10/20 16 Cholecystectomy completed Carolyne Haley RN [facility] 06/18/2016 16:53:53 09/05/19 14 Tubal Ligation completed Lisa Husain MA [facility] 08/09/2014 16:25:43 01/31/20 13 Date of Last Pap Smear completed Lisa Husain MA [facility] 08/09/2014 16:14:33 09/05/19 12 Shoulder Surgery completed BJ Fields [facility] 08/09/2014 16:14:33 Breast Surgery completed BJ Hughes [facility] 02/27/2015 12:12:50 Caesarean Section completed Lisa Husain MA [facility] 08/09/2014 16:25:43 Imaging Results None recorded. Procedure Notes None recorded. Medical Equipment None Reported. Allergies Allergen ID Allergen Name Allergen Category Reaction Reaction Severity Criticality Documentation Date Start Date Code Code System Note Provider Name and Address Organization Details Recorded Time 60417 Dilaudid medicatio n hives severe Not available 02/27/2015 94016 3 RxNorm vomit ing/s welli ng BJ Hughes [facility] 5 12:12:50 6143 iodine medicatio n hives Not available Not available 08/09/2014 5933 RxNorm BJ Fields, [place] - [facility] 4 16:14:33 Medications Name Sig Start Date Stop Date Status Note LastModified by Organization Details LastModified Time celecoxib 200 mg capsule TAKE 1 CAPSULE BY MOUTH TWICE DAILY NEEDED FOR MODERATE OR MORE SEVERE PAIN active Not Available Not Available No t Available amoxicillin 500 mg capsule Take 2 capsules twice a day by oral route for 14 days. 12/17 completed Not Available Not Available Not Available tizanidine 2 mg tablet TAKE 1 TO 2 TABLETS BY MOUTH EVERY 6 HOURS NEEDED FOR MUSCLE SPASM active Not Available Not Available No t Available albuterol sulfate 2.5 mg/3 mL (0.083 %) solution for nebulizatio n USE 1 VIAL IN NEBULIZER EVERY 4 TO 6 HOURS NEEDED active Not Available Not Available No t Available Prenatabs Rx 29 mg iron-1 mg tablet active Not Available Not Available Not Available cetirizine 10 mg tablet TAKE 1 TABLET BY MOUTH ONCE DAILY NEEDED active Not Available Not Available No t Available azithromyci n 250 mg tablet TAKE 2 TABLETS (500 MG) BY ORAL ROUTE ONCE DAILY FOR 1 DAY THEN 1 TABLET (250 MG) BY ORAL ROUTE ONCE DAILY FOR 4 DAYS 12/17 completed Not Available Not Available Not Available ibuprofen 800 mg tablet 09/17 completed Not Available Not Available Not Available clarithromy rahel 500 mg tablet Take 1 tablet every 12 hours by oral route for 14 days. 01/14 completed Not Available Not Available Not Available hydrocodone 5 mg-acetamin ophen 325 mg tablet active Not Available Not Available No t Available Doc-Q-Lace 100 mg capsule active Not Available Not Available Not Available phentermine 37.5 mg tablet TAKE 1 TABLET BY MOUTH EVERY MORNING BEFORE BREAKFAST FOR 30 DAYS. active Not Available Not Available No t Available omeprazole 40 mg capsule,del ayed release TAKE 1 CAPSULE BY MOUTH ONCE DAILY active Not Available Not Available No t Available tramadol 50 mg tablet TAKE 1 TABLET BY MOUTH EVERY 6 HOURS NEEDED FOR MODERATE OR MORE SEVERE PAIN active Not Available Not Available No t Available baclofen 20 mg tablet Take 1 tablet twice a day by oral route. active Not Available Not Available No t Available ketorolac 10 mg tablet TAKE 1 TABLET BY MOUTH EVERY 6 HOURS NEEDED FOR MODERATE OR MORE SEVERE PAIN active Not Available Not Available No t Available hydrocortis one 2.5 % topical cream with perineal applicator Insert 1 applicati on twice a day by rectal route. 2014 active Not Available Not Available Not Avai lable propranolol 10 mg tablet TAKE 1 TABLET BY MOUTH THREE TIMES DAILY NEEDED FOR ANXIETY active Not Available Not Available No t Available OneTouch Ultra Test strips active Not Available Not Available Not Available benzonatate 100 mg capsule TAKE 1 CAPSULE BY MOUTH THREE TIMES DAILY NEEDED active Not Available Not Available No t Available hyoscyamine sulfate 0.125 mg tablet TAKE 1 TABLET BY MOUTH TWICE DAILY NEEDED active Not Available Not Available No t Available ferrous sulfate 325 mg (65 mg iron) tablet Take 1 tablet every day by oral route. 10/11 completed Not Available Not Available Not Available ranitidine 150 mg tablet Take 1 tablet twice a day by oral route. 10/11 completed Not Available Not Available Not Available Robaxin-750 750 mg tablet Take 1 tablet twice a day by oral route. 09/17 completed Not Available Not Available Not Available hyoscyamine 0.125 mg sublingual tablet DISSOLVE 1 TABLET IN MOUTH ONCE DAILY NEEDED 10/11 completed Not Available Not Available Not Available diclofenac potassium 50 mg tablet Take 1 tablet twice a day by oral route with meals. 10/11 completed Not Available Not Available Not Available gabapentin 300 mg capsule Take 1 capsule twice a day by oral route. active Not Available Not Available No t Available omeprazole 20 mg capsule,del ayed release Take 1 capsule by mouth once daily active Not Available Not Available No t Available montelukast 10 mg tablet TAKE 1 TABLET BY MOUTH ONCE DAILY DIRECTED active Not Available Not Available No t Available hydroxyzine HCl 25 mg tablet 09/17 completed Not Available Not Available Not Available diclofenac sodium 50 mg tablet,jovanna yed release Take 1 tablet twice a day by oral route for 3 days. active Not Available Not Available No t Available polyethylen e glycol 3350 17 gram/dose oral powder active Not Available Not Available Not Available albuterol sulfate HFA 90 mcg/actuati on aerosol inhaler INHALE 1 PUFF BY MOUTH EVERY 4 TO 6 HOURS NEEDED active Not Available Not Available No t Available glyburide 1.25 mg tablet active Not Available Not Available Not Available diazepam 5 mg tablet TAKE 1 TABLET BY MOUTH EVERY 8 HOURS NEEDED FOR MUSCLE SPASM active Not Available Not Available No t Available cyclobenzap rine 5 mg tablet Take 1 tablet 3 times a day by oral route as needed. 09/17 completed Not Available Not Available Not Available Flonase Allergy Relief 50 mcg/actuati on nasal spray,suspe nsion [place] 1 spray every day by intranasa l route. 2019 active Not Available Not Available Not Avai lable Wixela Inhub 250 mcg-50 mcg/dose powder for inhalation INHALE 1 PUFF BY MOUTH TWICE DAILY active Not Available Not Available No t Available Vitals Date Recorded Body height Body mass index (BMI) Body weight Body temperature Heart rate Respiratory rate Systolic And Diastolic Provider Name and Address Organization Details Last Updated DateTime 0 157.48 cm 33.3 kg/m2 42794.8 1 g 98.3 [degF] 84 /min 20 /min 130/80 mm[Hg] Desire Quiñonez MA [facility] 0 09:09:34 Date Recorded Body height Provider Name an d Address Organization Details Last Updated DateTime 12/18/2019 157.48 cm Desire Quiñonez MA [facility] 020 16:21:52 Date Recorded Body height Body mass index (BMI) Body weight Body temperature Heart rate Respiratory rate Systolic And Diastolic Provider Name and Address Organization Details Last Updated DateTime 9 157.48 cm 34.3 kg/m2 91784.5 7 g 98.3 [degF] 82 /min 20 /min 132/88 mm[Hg] Desire Quiñonez MA [facility] 9 16:59:30 Date Recorded Body height Provider Name an d Address Organization Details Last Updated DateTime 01/15/2020 157.48 cm Desire Quiñonez MA [facility] 020 14:29:11 Social History Question Answer Notes LastModified by Organizat ion Details LastModified Time Tobacco Smoking Status Former Smoker Quit- 2005 Lillie ferrell [facility] 12/07/2016 11:52:26 What Is Your Level Of Caffeine Consumption? Moderate Information not available 12/07/2016 How Much Tobacco Do You Chew? None Information not available 12/07/2016 What Type Of Diet Are You Following? REGULAR Information not available 12/07/2016 Which Illicit Or Recreational Drugs Have You Used? Denies Information not available 12/07/2016 Marital Status Single Informatio n not available 12/07/2016 What Was The Date Of Your Most Recent Tobacco Screening? 01/02/2019 Information not available 03/29/2019 At What Age Did You Start Smoking Tobacco? 12 Information not available 12/07/2016 General Stress Level Medium Information not available 12/07/2016 Sex: Unknown Functional Status Question Answer Note LastModified by Organizat ion Details LastModified Time What is your level of alcohol consumption? Occasional Information not available 12/07/2016 What is your occupation? Student Information not available 12/07/2016 What is your exercise level? Occasional Information not available 12/07/2016 Mental Status None recorded. Family History Relationship Description Onset Age of this Age Resolved Age Notes LastModified by Organization Details LastModified Time Unspecified Relation Heart disease [email or web address] Not available 2015 11:56:09 Unspecified Relation Hypertensive disorder [email or web address] Not available 2015 11:56:09 Unspecified Relation Hypocholeste rolemia [email or web address] Not available 2015 11:56:09 Unspecified Relation Glaucoma [email or web address] Not available 2015 11:56:09 Medical History Condition Response Coronary Artery Disease N Blood Diseases N Kidney Cyst N Hyperthyroidism Y MRSA N Blood Transfusion N Blood disorders N Emphysema N Depression N COPD N Blood Clots N Pneumonia N Peripheral Arterial Disease N Premature N Edema N TIA N Headaches/Migraines N Anxiety Disorder N Obesity N Polyps N Infertility N Acid Reflux (GERD) N Hematuria N Stroke N Neck Injury N Polio N Hospital Admission other than N Neurologic Disorder N Other Sleep Disorders N Rheumatoid Arthritis N Fibromyalgia N Abdominal Aortic Aneurysm Repair N Kidney Disease N Heart Conditions N Heart Disease/Heart Problems N Hospitalizations N Brain Tumors N Acne N Eating Disorder N Skin Problems N Constipation N Meningitis N Tuberculosis N Cerebral Palsy N Myocardial Infarction N Asthma N Substance Abuse N Peripheral Vascular Disease N Vertigo N Sleep Disorder N Cirrhosis N Pulmonary Embolism N Chicken Pox N Flomax Use Past or Present N Hematologic Disease N Anxiety/Depression N Thyroid Disease N Colon Cancer N Glaucoma N Lung Disease N Developmental or Behavioral Disorders N Bipolar N Pacemaker N Diverticulitis/Diverticulosis N Anesthesia Complications N Orthopedic Problems N Orthotics N Head Injury/Concussion N Congenital Anomalies N Curiel Bite N Chronic Kidney Disease N Endometriosis N Liver Disease N Dialysis N Schizophrenia N Speech Delay N Chronic Obstructive Pulmonary Disease N Parkinson's Disease N Thyroid Problems N GI Problems N Developmental Delay N Anemia N Immune System Disorder N Multiple Sclerosis N Colon Polyps N Heart Attack (CT) N Diabetes Y Cardiomyopathy N Blood Transfusions N Heart Problems/Murmur N Eye Trauma N Congestive Heart Failure (CHF) N Valvular Heart Disease N Hyperlipidemia N Double Vision N Abuse/Domestic Violence N Hepatitis B N Lupus N Epilepsy/Seizures N Reflux/GERD N Aneurysm N Bronchitis N Heart Disease N Hypertension N Pre-Eclampsia N Heart Failure N Other Y Gout N High Blood Pressure N Atrial Fibrillation N Kidney Stones N Head Trauma/Injury N Congenital Heart Disease N Spine Problems N Gastrointestinal Disease N Lung Mass N Sinusitis N Obstructive Sleep Apnea N Muscle, Joint, or Bone Problems N Autoimmune disease N Vision or Eye Problems N Arthritis N Blood Clot N Cancer Y Seasonal allergies N Leg or Foot Ulcers N Raynaud's Disease N Aortic Aneurysm N Arrhythmia N Headaches N Heart Problems N Ambloypia N Ear or Hearing Problems N Hyperparathyroidism N Migraines N Artificial Joints N Kidney or Bladder Problems N NSAID Use N Encephalitis N PTSD N Ulcers N Prostate Hypertrophy N Bleeding Disorder N AIDS/HIV N Urinary Tract Infection N Back Problems N Allergies N Atrial Flutter N GERD/Reflux N Hepatitis N Autism Spectrum Disorder (ASD) N Breast Cancer N Hernia N Hypothyroidism N Breast Problem N Genitourinary Disease N Deep Vein Thrombosis N Varicose Veins N Cystic Fibrosis N Hearing Loss N Developmental Problems N Carotid Disease N Vitamin D Deficiency N ADHD N Bladder or Kidney Problems N High Cholesterol N [place] N Valvular Abnormalities N Psychiatric/Mental Health Condition N Organ Transplant N Foot Deformity N Allergies/Hayfever N Dyslipidemia N Hyponatremia N Diabetic Eye Disease N Osteoporosis/Osteopenia N Back Pain N Proteinuria N Mental Illness N Neurological Problems N Ovarian Cancer N Bedwetting N Seizures/Epilepsy N Kidney Failure N Ocular trauma N Dementia N Diverticulitis N Sleep Apnea N Mental Problems N Warfarin Management N Osteoporosis N Gynecological History Statement/Question Response Abnormal Pap N Sexually Active? Y STIs/STDs N HPV Vaccine N Date of Last Pap Smear 01/30/2013 Sexual Problems? N Current Control Method IUD Obstetrics History GPAL:G 5 P 4 0 1 4 Type Value Full Term 4 Spontaneous 1 Living 4 Total 5 Immunizations Vaccine Type Date Status Note Provider Nam e and Address Organization Details Recorded Time Td (adult) 09/05/2007 completed Kwesi Evans MD Attn: Accounting,[address] , [place], [address], [facility] 02/09/2016 08:46:19 Past Encounters Encounter ID Performer Location Encounter Start Date Encounter Closed Date Diagnosis/Indication Diagnosis SNOMED-CT Code Diagnosis ICD10 Code Diagnosis IMO Codes Diagnosis Note [id number] MD Kenneth Nichole ([facility]) [address] [facility] [place] [address] 07/23/2014 14:29:06 07/24/2014 10:26:43 Normal 67525272 Gestationa l diabetes mellitus 00386199 [id number] MD Kenneth Nichole ([facility]) [address] [facility] [place] [address] 08/12/2014 11:53:14 08/12/2014 12:35:46 Postoperative visit [id number] MD Debi Dejesushalto (Adult Med) [address] [facility] [address] 02/27/2015 11:39:50 02/27/2015 16:04:02 Pain of multiple joints 69692599 check labs to r/o inflammato ry arthritis Primary fi bromyalgia syndrome 06629737 Tried Cymbalta and Lyrica which did not help Trial of Gabapentin bid Baclofen bid pt does not want to take NSAID- requesting narcotics for pain Avoid narcotics [id number] MD Debi Dejesushalto (Adult Med) [address] [place] [address] 09/30/2015 11:48:02 10/01/2015 15:11:31 Painless rectal bleeding 539771797 K62.5 with hemorroid Refer to GI Obesity 750795788 E66.3 diet and exercise [id number] MD Debi Dejesushalto (Adult Med) [address] [place] [address] 02/09/2016 07:56:40 02/09/2016 10:25:27 Adult health examination 726443735 Z00.01 pt works at school as aid Painless r ectal bleeding 510594765 K62.5 with hemorroid Refered to GI-has apt to see GI on 03/10 for colonoscop y Pain of mu ltiple joints 00026851 M25.50 check labs to r/o inflammato ry arthritis [id number] Kwesi Evans MD [facility] (Adult Med) [address] [place] [address] 12/07/2016 11:26:27 12/07/2016 15:07:44 Primary fibromyalgia syndrome 00530024 M79.7 Tried Cymbalta/ gabapentin and Lyrica Avoid narcotics Try Robaxin and Diclofenac heat therapy [id number] MD Kenneth BUCKLEY 14 IM [address] [facility] [address] [place] [address] 10/11/2018 09:45:58 10/19/2018 09:51:03 Postcholecystectomy syndrome 43194269 K91.5 s/p cholecyste ctomy. Colonoscop y was negative per pt. Pending EGD. Still have intermitte nt GI bleed. Pt does well on hyoscyamin e. Follow up with GI. History of iron deficiency 234895444 Z86.39 Heavy periods, was told to have Endometrio sis. Also GI bleed pending EGD. Never took Iron. Labs. Follow up with Hydrotreater Operator and GI. Menorrhagia [id number] N9 2.0 Will f/u with Hydrotreater Operator. Painless r ectal bleeding [id number] K62.5 Had Colonoscop y done - was told negative. Still need to get EGD done. Pending GI. Primary fi bromyalgia syndrome 27648523 M79.7 Was diagnosed by PCP - Ankles, Elbows, Hips and Back. Had autoimmune blood tests negative 10 years ago. Refer to Rheumatolo gy. Chronic low back pain 27 [id number] M54.5 Was told she had spinal bifida - XR lumbar History of Malignant melanoma [id number] Z85.820 Dermatolog y to see the lesion on the left tragus Past pregn coy history of gestational diabetes mellitus [id number] Z86.32 CMP for glucose [id number] MD Kenneth BUCKLEY 14 IM [address] [facility] [address] [place] [address] 01/02/2019 16:08:37 01/02/2019 18:01:08 History of Malignant melanoma [id number] Z85.820 10/2018: Dermatolog y to see the lesion on the left tragus. Addendum: Pending Derm. Chronic low back pain 27 5193233 M54.5 10/2018: Was told she had spinal bifida at 25yo - XR lumbar Addendum: Xr lumbosacra l with work physical showed minimal multilevel lumbar spondylosi s. MRI for hx of spina bifida. Spina bifida 54920223 Q0 5.9 XR did not show much. MRI. Gastroesop hageal reflux disease without esophagitis 423378475 K21.9 Ranitidine doesn't help. Start omeprazole (OTC if not covered). Refer to GI. Flushing 472906601 R23.2 Flushing with anxiety/ag itation. Hydroxyzin e is too drowsy. Try Propranolo l PRN. Painless r ectal bleeding 945501576 K62.5 10/2018: Had Colonoscop y done - was told negative. Still need to get EGD done. Pending GI. 12/2018: Pt forgot who her GI was. Requesting Omeprazole for reflux. Refer. History of iron deficiency 448626459 Z86.39 Heavy periods, was told to have Endometrio sis. Also GI bleed pending EGD. Never took Iron. Labs. Follow up with Hydrotreater Operator and GI. Addendum: labs wnl. Periods are him assistant. Menorrhagia 657941643 N9 2.0 Will f/u with Hydrotreater Operator. Labs wnl. Periods are slowing down per pt. Pt will f/u with Hydrotreater Operator for annual. [id number] MD Kenneth BUCKLEY 14 IM 4 [facility] [address] [place] [address] 09/18/2019 08:48:33 09/19/2019 11:17:11 Gastroesophageal reflux disease without esophagitis 725094150 K21.9 12/2018: Ranitidine doesn't help. Start omeprazole (OTC if not covered). Refer to GI.09/2019 : Hasn't seen GI - re-refer. Worse and increased from 20mg to 40mg. Check for H pylori. May be cause of chest pain. Atypical chest pain [id number] R07.89 CXR: Right lower lobe nodular density. If clinically believedto be infectious , short-term follow-up could be performed followinga ppropriate therapy. Otherwise, this could be further evaluated withCT. Comparison with previous imaging would be beneficial ifavailabl e.EKG ok. D-dimer wnl. Pt recently had a cousin who of pulmonary embolism and she is concerned. Naproxne didn't help. Z-pack and Diclofenac for now. Solitary n odule of lung 157830280 R91.1 CXR: Right lower lobe nodular density. If clinically believedto be infectious , short-term follow-up could be performed followinga ppropriate therapy. Otherwise, this could be further evaluated withCT. Comparison with previous imaging would be beneficial ifavailabl e. Chest CT in 3mo if better. [id number] MD Kenneth BUCKLEY 14 IM [address] [facility] [address] [place] [address] 12/18/2019 09:15:33 12/25/2019 12:31:13 Atypical chest pain 195356578 R07.89 09/2019:CX R: Right lower lobe nodular density. If clinically believedto be infectious , short-term follow-up could be performed followinga ppropriate therapy. Otherwise, this could be further evaluated withCT. Comparison with previous imaging would be beneficial ifavailabl e.EKG ok. D-dimer wnl. Pt recently had a cousin who of pulmonary embolism and she is concerned. Naproxen didn't help. Z-pack and Diclofenac for now. 12/2019:Ch est pain is better after treatment for H pylori. EGD with GI was ok per patient.Wa s told to continue PPI and hyoscyamin eTaking cough medsEvalua te with CT chest. Solitary n odule of lung [id number] R91.1 CXR 09/2019: Right lower lobe nodular density. If clinically believedto be infectious , short-term follow-up could be performed followinga ppropriate therapy. Otherwise, this could be further evaluated withCT. Comparison with previous imaging would be beneficial ifavailabl e. Chest CT in 3mo if not better. 12/2019: Still having intermitte nt coughs. CT chest ordered. Gastroesop hageal reflux disease without esophagitis 875814426 K21.9 12/2018: Ranitidine doesn't help. Start omeprazole (OTC if not covered). Refer to GI.09/2019 : Hasn't seen GI - re-refer. Worse and increased from 20mg to 40mg. Check for H pylori. May be cause of chest pain. 12/2019:EG D - mild pre-pylori gastritis. s/p small bowel bopsy and STEPHIE testing.Co ntinue PPI.Avoid NSAIDs Continue PPI, f/u with GI. Finished triple therapy.Wa s told H pylori was gone. Persistent cough 6257188 02 R05 Trial of inhaler and antihistam roseann for her coughs, while waiting for CT chest. Painless r ectal bleeding 508451961 K62.5 10/2018: Had Colonoscop y done - was told negative. Still need to get EGD done. Pending GI. 12/2018: Pt forgot who her GI was. Requesting Omeprazole for reflux. Refer. 12/2019: diarrhea better, pt taking her hyoscyamin e PRN (GI said TID). Pending Colonoscop y. [id number] MD Kenneth BUCKLEY 14 IM [address] [facility] [address] [place] [address] 01/15/2020 09:22:54 01/16/2020 10:31:08 Persistent cough 385431254 R05 Since 09/2019.Tr ial of inhaler and antihistam roseann for her coughs, while waiting for CT chest. ER for fever for 2 days with GI symptoms. Workup negative, including COVID.Stea m and mist helped.On zyrtec and albuterol daily since last visit. Add genny de, Flonase, Teshugo hu.Ref er to ENT Gastroesop hageal reflux disease without esophagitis [id number] K21.9 12/2018: Ranitidine doesn't help. Start omeprazole (OTC if not covered). Refer to GI.09/2019 : Hasn't seen GI - re-refer. Worse and increased from 20mg to 40mg. Check for H pylori. May be cause of chest pain. 12/2019:EG D - mild pre-pylori gastritis. s/p small bowel bopsy and STEPHIE testing.Co ntinue PPI.Avoid NSAIDs Continue PPI, f/u with GI. Finished triple therapy.Wa s told H pylori was gone. 01/2020: on PPI. Solitary n odule of lung 574253634 R91.1 CXR 09/2019: Right lower lobe nodular density. If clinically believedto be infectious , short-term follow-up could be performed followinga ppropriate therapy. Otherwise, this could be further evaluated withCT. Comparison with previous imaging would be beneficial ifavailabl e.Chest CT in 3mo if not better. 12/2019: Still having intermitte nt coughs. CT chest ordered. 01/2020: Went to ER for fever and coughs. Need CT chest report. Cancel ours. [id number] MD Moncho Garcia [address] [place] [address] 09/01/2020 10:32:12 09/02/2020 09:44:30 Viral screening 404408886 Z11.59 D/w pt the current pandemic of COVID-19 and call for social isolation in order to blunt the curve and minimize risk and spread. Encouraged patient and family to take restrictio ns seriously. They have verbalized understand ing of such. Viral syndrome 944296498 B34.9 Health Concerns Section Related Observation LastModified by Organization Detai ls LastModified Time None Recorded Concern Status LastModified by Organization Details LastModified Time None Recorded Advance Directives Directive None Recorded Payers Insurance Date Sequence Insurance Name Policy Number Policy Mosley Covered Member ID Mosley Member ID Guarantor Name 09/01/2020 COVID19 [employer]AT[employer]D Ida Ulloa [id number] Ida Ulloa 09/01/2020 SLIDING FEE SCHEDULE - DISCOUNT Ida Ulloa 09/01/2020 1 [employer] - [id number] (PPO) [id number] Ida Ulloa [id number] Ida Ulloa 10/19/2021 1 [employer] BETTER HE[facility] OF [place] - [facility] ON OR AFTER 08/05/2020 (MEDICAID REPLACEMENT - HMO) Ida Ulloa [id number] Ida Ulloa 09/01/2020 1 [facility] (MEDICAID HMO) [id number] Ida Ulloa [id number] Ida Ulloa 09/01/2020 2 *SELF PAY* ronel Ulloa 09/01/2020 1 [facility] (MEDICAID HMO) [facility] Ida Laila [id number] Ida Laila 09/01/2020 1 [place] [facility] Ida Ulloa [id number] Ida Ulloa Notes Date Note Type Note Provider Name and Address Organization Details Recorded Time 01/02/2019 text/html ROS as noted in the HPI 33yo female is here for f/u. Dr. Wiley patient. 1) Diarrhea after eating - had post cholecystectomy, menorrhagia, GI bleed. GERD. 10/2018: Colonoscopy was negative per pt Controlled with Hydroxyzine Pt needs to f/u with GI for EGD - scared. Pt just want to do med now. 12/2018: Pt forgot who her GI was. Requesting Omeprazole for reflux. 2) Fe def not anemia 10/2018: Irregular periods and and GI bleed. Still need to get her EGD done. Not on med 12/2018: Labs wnl. 3) Chronic back pain Hx of spina bifida. XR lumbar minimal lumbar spondylosis. EDITH Cruz SISara 01/02/2019 17:52:52 09/18/2019 text/html ROS as noted in the HPI 34yo female is here for ER f/u. 09/17/2019:CXR FINDINGS: HEART/MEDIASTINUM: The cardiomediastinal silhouette and pulmonary vasculature are normal. LUNGS/PLEURA: There is a nodular right infrahilar density, to appears to be in the lower lobe on lateral view. There are calcified granulomas. Azygos fissure, an anatomic variant. HARDWARE/LINES/TUBES: None. BONES: No acute findings. OTHER: No other acute findings. IMPRESSION: Right lower lobe nodular density. If clinically believed to be infectious, short-term follow-up could be performed following appropriate therapy. Otherwise, this could be further evaluated with CT. Comparison with previous imaging would be beneficial if available. EKG:SINUS RHYTHM NORMAL ECG NO PREVIOUS TRACING IS AVAILABLE FOR COMPARISON Trop neg. D-dimer neg. CMP ok CBC ok beta-hcg neg Woke up by it yesterday.Tramadol 100mg helped a little only .Left sided lower chest wall, stabbing pain.Had a cousin who recently had blood clot in the lungs. EDITH Cruz SISara 09/18/2019 23:54:16 12/18/2019 text/html ROS as noted in the HPI pt is call for f/u after her EGD. Telemed. EGD was done 10/2019. Pathology was ok.She finished triple therapy for H pylori and was told her biopsy was negative.Pt was supposed to have a colonoscopy as well but deferred due to pandemic. Chest pain is better.Still coughing on and off with some sputum.Diarrhea is better as well. Naima ferrell, EDITH [facility] 12/24/2019 13:10:55 01/15/2020 text/html ROS as noted in the HPI pt is call for f/u after her EGD. Telemed. 12/2019:EGD was done 10/2019. Pathology was ok.She finished triple therapy for H pylori and was told her biopsy was negative.Pt was supposed to have a colonoscopy as well but deferred due to pandemic. Chest pain is better.Still coughing on and off with some sputum.Diarrhea is better as well. 01/2020:Still coughing.Had fever 01/07 - 01/09/2020 with one day of vomiting diarrhea.Was seen in ER.CBC, CMP ok.Elevated d-dimer and CT chest negative for P.E. She was told her Covid was negative.Pt is tracked by [facility].She is still having coughs and sob. This is since 09/2019.Has been taking Cetirizine and Albuterol daily. Still on PPI.Need fans and hot shower steam to help with coughs.Denies any nasal congestion. Naima ferrell, [place] [facility] 01/15/2020 15:33:43 09/01/2020 text/html COVID-19 Symptom s January 2020Reported by PatientUpper Respiratory SymptomsFor quality, patient reportsdry coughandwheezy cough. For context, patient reportsasthma. For covid-19 signs and symptoms, patient reportscough same,fever same, andfatigue same. For contacts and exposure, patient reportsclose contact with a confirmed or suspected case of covid-19. COVID ScreeningReported by PatientHPIFor onset/duration of fever, patient reportsfever. For associated symptoms, patient reportscough.ROS as noted in the HPI 35 yo female ,spoke via phone with C/O, congestion, cough, fatigue, fever, exposed to pos COVID person. PAU Jules NP Attn: Accounting,[address] [facility], [place], [address], [place] [facility] 09/01/2020 11:30:42 OBGyn Episode Ob Episode Information Episode Created Date Number of Fetuses Patient Bloodtype Patient rh Status Prepregnancy Weight lbs Domestic Partner Domestic Partner Phone Father Name Supervisor Wound Status 08/09/20 14 1 CLOSED Fetus Data First Name Last Name Admitted to NICU Weight (g) Sex Living Outcome Pediatric Complications Fetus ID Race Codes Race Delivery Type Full Term 2522 Calvin Calculation Initial Calvin Date Initial Exam Date Initial Exam Provider Initial Ultrasound Date Last Menstrual Period Date Ultra Sound Weeks Gestation 0 Eighteen To Twenty Week Calvin Update Ultra Sound Date Fundal Height At Umbil Quickening Date Ultra Sound Latest Weeks Gestation Final Calvin Confirmed By Final Calvin Confirmed Date Final Calvin Date Ultra Sound Latest Days Gestation 0 0 Menstrual History Last Menstrual Date Menses Monthly On Bcp Conception Prior Menses Frequency Hcg Plus Date Menarche Onset Age Delivery Information Delivery Date Delivery Type Labor Anesthesia Weeks Gestation Incision Type Labor Labor Length Hrs Delivered By Post Complications Tubal Sterilization Discharge Date Comments 4 Regional-Sp inal Discharge Information Feeding Method Contraceptive Method Maternal HG B and HCT Levels Ob Episode Information Episode Created Date Number of Fetuses Patient Bloodtype Patient rh Status Prepregnancy Weight lbs Domestic Partner Domestic Partner Phone Father Name Supervisor Wound Status 08/09/20 14 1 CLOSED Fetus Data First Name Last Name Admitted to NICU Weight (g) Sex Living Outcome Pediatric Complications Fetus ID Race Codes Race Delivery Type 4168.51 048 F Full Term 2523 Standard Vaginal Delivery Calvin Calculation Initial Calvin Date Initial Exam Date Initial Exam Provider Initial Ultrasound Date Last Menstrual Period Date Ultra Sound Weeks Gestation 0 Eighteen To Twenty Week Calvin Update Ultra Sound Date Fundal Height At Umbil Quickening Date Ultra Sound Latest Weeks Gestation Final Calvin Confirmed By Final Calvin Confirmed Date Final Calvin Date Ultra Sound Latest Days Gestation 0 0 Menstrual History Last Menstrual Date Menses Monthly On Bcp Conception Prior Menses Frequency Hcg Plus Date Menarche Onset Age Delivery Information Delivery Date Delivery Type Labor Anesthesia Weeks Gestation Incision Type Labor Labor Length Hrs Delivered By Post Complications Tubal Sterilization Discharge Date Comments 4 Regional-Ep idural 40 6 [facility] Discharge Information Feeding Method Contraceptive Method Maternal HG B and HCT Levels Ob Episode Information Episode Created Date Number of Fetuses Patient Bloodtype Patient rh Status Prepregnancy Weight lbs Domestic Partner Domestic Partner Phone Father Name Supervisor Wound Status 08/09/20 14 1 CLOSED Fetus Data First Name Last Name Admitted to NICU Weight (g) Sex Living Outcome Pediatric Complications Fetus ID Race Codes Race Delivery Type 3088.96 152 F Full Term 2524 Standard Vaginal Delivery Calvin Calculation Initial Calvin Date Initial Exam Date Initial Exam Provider Initial Ultrasound Date Last Menstrual Period Date Ultra Sound Weeks Gestation 0 Eighteen To Twenty Week Calvin Update Ultra Sound Date Fundal Height At Umbil Quickening Date Ultra Sound Latest Weeks Gestation Final Calvin Confirmed By Final Calvin Confirmed Date Final Calvin Date Ultra Sound Latest Days Gestation 0 0 Menstrual History Last Menstrual Date Menses Monthly On Bcp Conception Prior Menses Frequency Hcg Plus Date Menarche Onset Age Delivery Information Delivery Date Delivery Type Labor Anesthesia Weeks Gestation Incision Type Labor Labor Length Hrs Delivered By Post Complications Tubal Sterilization Discharge Date Comments 2 RegionalSp inal 39 12 [facility] Discharge Information Feeding Method Contraceptive Method Maternal HG B and HCT Levels Ob Episode Information Episode Created Date Number of Fetuses Patient Bloodtype Patient rh Status Prepregnancy Weight lbs Domestic Partner Domestic Partner Phone Father Name Supervisor Wound Status 08/09/20 14 1 CLOSED Fetus Data First Name Last Name Admitted to NICU Weight (g) Sex Living Outcome Pediatric Complications Fetus ID Race Codes Race Delivery Type 4141.29 496 M Full Term 2525 Standard Vaginal Delivery Calvin Calculation Initial Calvin Date Initial Exam Date Initial Exam Provider Initial Ultrasound Date Last Menstrual Period Date Ultra Sound Weeks Gestation 0 Eighteen To Twenty Week Calvin Update Ultra Sound Date Fundal Height At Umbil Quickening Date Ultra Sound Latest Weeks Gestation Final Calvin Confirmed By Final Calvin Confirmed Date Final Calvin Date Ultra Sound Latest Days Gestation 0 0 Menstrual History Last Menstrual Date Menses Monthly On Bcp Conception Prior Menses Frequency Hcg Plus Date Menarche Onset Age Delivery Information Delivery Date Delivery Type Labor Anesthesia Weeks Gestation Incision Type Labor Labor Length Hrs Delivered By Post Complications Tubal Sterilization Discharge Date Comments 4 RegionalEp idural 39 Discharge Information Feeding Method Contraceptive Method Maternal HG B and HCT Levels
--- OUTSIDE RECORDS SUMMARY | 2025-06-28 15:28 | XMS_ITS | Encounter Summary ---
Author Organization [facility] Address [address] [place] [address] Phone Care Team Providers Care Ceramic Engineering Professor Name Role Phone oJhn Kaiser DO Unavailable [phone] Dawn Bower WAREHOUSE REPRESENTATIVE, CARDIOVASCULAR PHYSICIAN ASSISTANT Unavailable [phone] Gloria Garvey WAREHOUSE REPRESENTATIVE, CARDIOVASCULAR PHYSICIAN ASSISTANT Unavailable Yan Gutierrez MD Unavailable Naima Carver MD Unavailable [phone] Marce Armenta PAC Primary Care Provider + Dirk Viramontes PAC Unavailable [phone] Reason for Visit * Reason Comments Medication Refill Encounter Details Date Type Department Care Team (Late st Contact Info) Description 01/06/2024 Refill [facility] - Family Medicine [facility] [address] [place] [address] Marce Armenta, PAC [address] [place] [address] Medication Refill Social History Tobacco Use Types Packs/Day Years Used Date Smoking Tobacco: Former Cigarettes 0 05/12/1996 - 03/04/2006 Smokeless Tobacco: Never Alcohol Use Standard Drinks/Week Comments Not Currently 0 (1 standard drink = 0.6 oz pur e alcohol) once or twice a year [facility] Utilities Answer Date Recorded In the past [...] often do you attend chur ch or church services? Never 11/03/2023 Do you belong to any clubs o r organizations such as denominational groups, unions, fraternal or athletic groups, or [...] Total Score - Questions 1-9 1 10/07 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 Requested Prescriptions Pending Prescriptions Disp Refills Trulicity 4.5 MG/0.5ML Solution Pen-injector [Pharmacy Med Name: Trulicity 4.5 MG/0.5ML Subcutaneous Solution Pen-injector] 4 mL 0 Sig: INJECT 1 PEN SUBCTANEOUSLY ONCE A WEEK GLP-1 Agonists Protocol Failed - 01/06/2024 7:31 AM Failed - HgA1C result on record in past 6 months HGB-A1C Date Value Ref Range Status 06/30/2023 5.1 4.0 - 6.0 % Final Failed - GFR on record in past 6 months GFR, EST. NONAFRICAN Date Value Ref Range Status 06/30/2023 >60 >=60 Final Passed - Lipid panel result on file [...] days Recent Visits Date Type Provider Dept 12/19/23 Office Visit Marce Armenta PAC [facility] 11/03/23 Office Visit Marce Armenta PAC [facility] 08/02/23 Office Visit Marce Armenta PAC [facility] Showing recent visits within past 182 days and meeting all other requirements Future Appointments Date Type Provider Dept 01/24/24 Appointment Marce Armenta PAC [facility] 03/02/24 Appointment Marce Armenta PAC [facility] Showing future appointments within next 90 days and meeting all other requirements documented in this encounter Plan of Treatment Not on file documented as of this encounter Visit Diagnoses Diagnosis Type 2 diabetes mellitus without complication, without long-term current use of insulin documented in this encounter Additional Health Concerns Assessment Noted Time PHQ-9 Depression Total Score: 1 11/03/19 24 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 documented as of this encounter Care Teams Ceramic Engineering Professor Relationship Specialty Start Date End Date Marce Armenta PAC [address] [place] [address] PCP - General Physician Senior Scientist 04/22/20 John Kaiser DO Gastroenterology 03/15/16 Dawn Bower, WAREHOUSE REPRESENTATIVE, CARDIOVASCULAR PHYSICIAN ASSISTANT Nurse Practitioner Advanced Practice Nurse 03/15/16 Gloria Garvey, [place], CARDIOVASCULAR PHYSICIAN ASSISTANT Nurse Practitioner Advanced Practice Nurse 03/15/16 Yan Gutierrez MD General Surgery 02/22/17 Naima Carver MD [address] [place] [address] [place] [address] Family Medicine 10/03/19 Dirk Viramontes PAC [address] [place] [address] Physician Senior Scientist Physician Senior Scientist 02/10/24 documented as of this encounter
--- NOTE | 2025-06-28 15:47 | ED.SOB ---
HPI - SOB/Dyspnea General Chief Complaint: Back Pain/Injury Stated Complaint: Right Side Pain/Pain With Breathing Time Seen by Provider: 06/28/25 15:47 Source: patient Mode of arrival: ambulatory Limitations: no limitations History of Present Illness HPI Narrative: 40-year-old female presents with complaint of pain to right ribs and right upper mid back. Reports pain worse with movement and with taking deep breath. Denies chest pain and shortness of breath. Denies injury. Patient ambulatory with steady gait. No recent URI symptoms. No recent travel. Does not smoke or take control. No recent surgeries. All systems reviewed and negative except as noted above. Related Data Home Medications ?Medication ?Instructions ?Recorded ?Confirmed ?Last Taken ?Type dulaglutide 4.5 mg/0.5 mL mg subcut 12/16/23 Unknown History subcutaneous pen injector (Trulicity) omeprazole 40 mg capsule,delayed mg 12/16/23 Unknown History release albuterol sulfate 2.5 mg/3 mL mg 06/28/25 Unknown History (0.083 %) solution for nebulization albuterol sulfate 90 mcg/actuation inhalation 06/28/25 Unknown History aerosol inhaler losartan 25 mg tablet mg 06/28/25 Unknown History Allergies Allergy/AdvReac Type Severity Reaction Status Date / Time hydromorphone Allergy Intermediate Hives Verified 06/28/25 15:34 [facility] Past Medical History Medical History (Updated 06/28/25 @ 16:33 by Geovanna Laureano APRN) H/O gastroesophageal reflux (GERD) Comments At time of signature, agree with nursing past medical, surgical, social and family history. There is no relevant family history pertinent to the presenting complaint. Exam Narrative: GENERAL: This is a well-nourished, well-developed patient, in no apparent distress. HEAD: normocephalic, atraumatic. EYES: PERRL. Sclera clear/white. Vision is grossly intact. EARS: External ears normal, auditory canals clear and without drainage, TMs normal without perforation. Hearing grossly intact. NOSE: External nose normal with no obvious nasal discharge, nares without redness, no rhinorrhea. THROAT: Mucous membranes moist, posterior pharynx clear. NECK: Neck supple, non-tender without lymphadenopathy, masses or thyromegaly. CARDIOVASCULAR: Regular rate and rhythm without murmurs, gallops, or rubs. RESPIRATORY: Clear to auscultation. Breath sounds equal bilaterally. No wheezes, rales, or rhonchi. SKIN: warm, Dry, intact with no suspicious lesions or rash, good texture and turgor. NEURO: awake, alert, and oriented to person, place and time. There were no obvious focal neurologic abnormalities. EXTREMITIES: No joint tenderness, effusion, or edema noted. No calf tenderness. Negative Homans sign bilaterally. BACK: Nontender without deformity. Course Course Level of Care: Express Care Visit Vital Signs Vital signs: Vital Signs Temperature 36.8 C 06/28/25 15:28 Pulse Rate 106 H 06/28/25 15:28 Respiratory Rate 20 06/28/25 15:28 Blood Pressure 147/91 H 06/28/25 15:28 Pulse Oximetry 98 06/28/25 15:28 Oxygen Delivery Room Air 06/28/25 15:28 Temperature 36.8 C 06/28/25 15:28 Pulse Rate 92 06/28/25 16:12 Respiratory Rate 20 06/28/25 15:28 Blood Pressure 147/91 H 06/28/25 15:28 Pulse Oximetry 98 06/28/25 15:28 Oxygen Delivery Room Air 06/28/25 15:28 Reviewed MDM - SOB/Dyspnea MDM Narrative Medical decision making narrative: normal chest x-ray. Normal exam. Lungs are clear to auscultation. No respiratory distress. No muscular tenderness on palpation. pt reported no improvement in pain after toradol. Recommended transfer to ER for rule out PE. Discussed PE risk factors and symptoms. Pt does not have any risk factors. PERC rule zero. She does not want to go to ER tonight. Just wants to go home, states ER is always too busy. Feels pain is muscular related. Pain worse when lifting grandchild today. Will go to ER for any worsening of symptoms. Differential Diagnosis Differential diagnosis: Likely pulmonary embolism and other (back injury, costochondritis) Imaging Data My impression: Agree with radiologist Radiologist's impression: EXAMINATION: XR chest 2V, 06/28/2025 15:53 CDT HISTORY: pain to R side chest with deep breath COMPARISON: No comparisons available. Technique: 2 views obtained. Findings: The lungs are clear, no effusion. No pneumothorax. Heart is normal size. Mediastinal and hilar contours are within normal limits. Bony thorax no acute abnormality. Impression: No acute cardiopulmonary abnormality. Discharge Plan Discharge Clinical Impression: Acute costochondritis Patient Disposition: Home Condition: Stable Instructions: Costochondritis (ED) Additional Instructions: Take medications as prescribed. Methocarbamol as a muscle relaxant may cause drowsiness. Do not drive while taking this medication. Alternate between ice and heat. Do stretching exercises as tolerated. If you have worsening of pain or difficulty breathing go to the ER. Patient Language: Malian Prescriptions: New methocarbamol 500 mg tablet 500 mg PO Q6H PRN (Reason: muscle pain/spasm) Qty: 30 0RF ibuprofen 800 mg tablet 800 mg PO TID PRN (Reason: pain) Qty: 30 0RF methylprednisolone [Medrol (Helio)] 4 mg tablets,dose pack See Rx Instructions PO .COMPLEX Qty: 21 0RF Rx Instructions: orally per package directions No Action omeprazole 40 mg capsule,delayed release(DR/EC) Trulicity 4.5 mg/0.5 mL pen injector SUBCUT baclofen 10 mg tablet 10 mg PO TID PRN (Reason: muscle pain) Qty: 10 0RF losartan 25 mg tablet albuterol sulfate 2.5 mg /3 mL (0.083 %) solution for nebulization albuterol sulfate 90 mcg/actuation HFA aerosol inhaler INHALATION Follow-up/Referrals: Kathi,MIKE Mcgregor [Primary Care Provider, Unknown] Time of Disposition: 16:33
[2025-06-28 16:12] VITALS: PULSE 92
[2025-06-28] MEDS: KETOROLAC (*BKC) 60 MG/2 ML VIAL IM (16:13)
== END 2025-06-28 16:39 | disposition home or self-care (01) ==
PROVIDERS: Emergency Provider Nurse Practitioner Family; PCP Physician Assistant
DX: M94.0 Chondrocostal junction syndrome [Tietze] (principal); K21.9 Gastro-esophageal reflux disease without esophagitis
CPT/HCPCS: 71046; 96372; 99213; G0463; J1885; J7512